=== PATIENT | male | born 1990 | race Caucasian/White ===

== ENCOUNTER 2022-11-22 16:37 | Emergency (ER) | payer MEDICAID, SELFPAY ==
[2022-11-22 16:38] VITALS: BP 136/90; PULSE 83; RESP 17; TEMP 36.6; O2SAT 99; BMI 28.3
--- NOTE | 2022-11-22 17:01 | EDS_ITS ---
HPI HPI - Psych History of Present Illness Chief Complaint: Mental Health Informant: patient Narrative Narrative: Patient presents to ED for psychiatric evaluation and help. Patient states that he is pretty sure his sister called police because he was blowing up her phone. It sounds like he was texting and calling her a lot. He states he gets anxious when he is home alone and was calling her a lot. He denies any report of suicidal statement. He denies that he has any thoughts of hurting himself or anyone else including his child. He does admit that he is stressed. He is living in a house where a gentleman and his mother of cancer. This kind of makes him nervous. He has not been working since August. He has bills to pay but has to watch his child and cannot get a job right now and it is causing him a lot of stress. He admits that his sleep is a little bit poor. He is still eating in fact he thinks he is gaining a small amount of weight. He would be interested in help. It sounds like he has been in counseling before but not for a long time. He does use methamphetamines and on occasion and used yesterday. He states he does take prescribed Adderall for narcolepsy. He has no physical medical complaints. [facility] Medical History (Updated 11/22/22 @ 19:[address] Dmitry Prajapati MD) Substance abuse Home Medications ketorolac 10 mg tablet 10 mg PO Q4H ##14 04/15/14 [Rx Last Taken Unknown] oxycodone-acetaminophen 5 mg-325 mg tablet 1 - 2 tab PO Q4H PRN PRN Pain ##20 04/15/14 [Rx Last Taken Unknown] Allergy/AdvReac Type Severity Reaction Status Date / Time No Known Allergies Allergy Verified 11/22/22 16:41 Family History no significant family his Social History Smoking Status: Never smoker ROS ROS ED Constitutional Constitutional ED: Denies chills or fever(s) Eyes Eyes: Denies change in vision ENT ENT ED: Denies rhinorrhea or sore throat Cardiovascular Cardiovascular: Denies chest pain or palpitations Respiratory/Chest Respiratory/Chest: Denies cough or dyspnea Gastrointestinal Gastrointestinal: Denies abdominal pain, diarrhea, nausea or vomiting Genitourinary Genitourinary ED: Denies dysuria Musculoskeletal Musculoskeletal: Denies myalgias Integumentary Denies rash Neurologic Neurologic: Denies headache(s) Psychiatric Psychiatric: Reports anxiety and depression; Denies suicidal ideation or suicidal thoughts Endocrine Endocrinology: Denies polydipsia or polyuria Hematologic/Lymphatic Hematologic/Lymphatic: Denies easy bleeding or easy bruising Allergic/Immunologic Allergic/Immunologic ED: Denies urticaria EXAM Physical Exam Narrative Exam Narrative: Patient is awake and alert. He is cooperative. HEENT: Shows no trauma. Mucous membranes are moist. Neck is supple. Lungs are clear bilaterally Heart is regular without murmur gallop or rub. Abdomen is soft and nontender shows no CVA or suprapubic tenderness Extremities show no trauma. He does have well callused hands from history of working. Neurologically he is awake alert appropriate not lethargic or overstimulated. Psychiatric: Patient does have a somewhat depressed affect. His eye contact is not the best. But he answers questions quickly. He seems to be consistent. I am not getting any indication that he is not telling the truth. He has denied multiple times any thoughts of hurting himself or others. Const Vital Signs: 11/22/22 16:38 Temperature 97.8 F Temperature Source Temporal Pulse Rate 83 Respiratory Rate 17 Blood Pressure 136/90 H Blood Pressure Mean 105 Pulse Ox 99 Oxygen Delivery Method Room Air MDM MDM MDM Narrative Medical decision making narrative: I did talk to our social studies teacher who is seeing this patient also. Our social studies teacher also saw him and talk to them. He is amenable to treatment. She also does not feel he needs to come in the hospital. He is not suicidal or homicidal. He is able to care for himself. No flight of ideas. No paranoia. She does have him arranged to see intensive outpatient psychiatry. Discharge Plan Triage Chief Complaint: Mental Health ED Provider: Dmitry Prajapati Dx/Rx/DC Orders Clinical Impression: Depression, Amphetamine abuse Prescriptions: No Action ketorolac 10 MG tablet 10 mg PO Q4H Qty: 14 0RF oxycodone-acetaminophen 1 TABLET tablet 1 - 2 tab PO Q4H PRN PRN (Reason: Pain) Qty: 20 0RF Primary Care Provider: Care Physician,No Primary Referrals: Care Physician,No Primary [Primary Care Provider] - Disposition Disposition: [facility]
--- NOTE | 2022-11-22 18:25 | CM.ED ---
Social Work Psychiatric Assessment Reason for Consult: mental health Informants: Patient, Neil Chief Complaint: Patient states ?I called my sister because I didn?t want to be alone, and she called police to check on me?. Patient explained ?I get scared of life and reality, I always let people down?. Martial Status: Patient reports he is single. Identified gender/ sexual orientation: male, heterosexual Living situation: Patient reports he lives with his son and his son?s mother. Supports/ Resources: Patient explained his supports are situational, but he typically reaches out to his sister, son?s mother or his mother?s friend for support. 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 Patient reports he is currently unemployed after being fired from a job of 3 plus years due to smelling like marijuana. Patient states he walked out after management approached him with the concern. ? Mental Health Treatment/ History: Patient reports he was engaged in counseling when he was in high school but didn?t connect with the counselor. Patient reports ADHD diagnosis. Patient reports no previous psychiatric hospitalization. Patient reports his Dad in 2016 and his mother in 2019. Patient expressed sadness and guilt when discussing his father?s passing. Patient is prescribed Adderall. ? Triggers/ stressors: Patient reports he struggles with ?being along?, feeling like he isn?t able to take care of his family and thinking about the passing of his parents. ? Coping Skills: Patient states ?getting high?, talking to someone he trusts or being able to distraction himself such as working. ?? Abuse History: none reported Substance Abuse Hx: Patient reports daily marijuana use and occasional meth use ?when he has it?. Patient reports he is not concerned about his use and compares using meth to taking his Adderall. ?? Risk to Self/Others: ? Suicidal: Patient states he is not currently experiencing suicidal thoughts, does not have a plan nor previous suicide attempt. QUINN assisted patient in completing [place] Suicide Screening; patient is at a low risk for suicide. Patient reports he has a gun in the house, however, patient states he could not use it nor would want to do that to his son. ? Homicidal: denied ? Violence: denied Mental Status Exam: ? Orientation x3 ? Memory: good ? Appearance:? Patient is disheveled and unclean. ? Mood/ affect: depressed and tearful ? Communication Pattern: Patient responds to questions and is tearful throughout assessment. ? Thought Process: appropriate, denies A/VH. ? General Intellectual Functioning: average Judgement: fair Insight: fair QUINN consulted with MD Prajapati and reviewed symptoms and current safety concerns. MD reports patient would benefit from connection to resources, but inpatient psych is not warranted, SW in agreement. Assessment: SW met with patient and introduced herself and role as [facility] Depilatory Painter. Patient was seated on hospital bed in street clothes and agreeable to see patient. SW utilized open ended questions to gather information needed for assessment. Patient was tearful throughout assessment. SW educated patient on depression and provided emotional support. Patient was receptive towards information. SW assisted patient in completing [place] Suicide Screening and patient is low risk for suicide. Patient reports no current plan, no thoughts of suicide nor previous attempts. Patient reports no abuse history and a known diagnosis of ADHD. Patient currently uses marijuana most days and meth occasionally. Patient in agreement to complete Safety plan. SW assisted patient in completing safety plan; patient reports he will review it with his son?s mother Екатерина. SW provided patient with local counseling resources as well as local crisis contact information. SW provided patient with [facility] resources and highlighted [employer] as well as [employer] for their employment program. SW also reviewed information regarding [facility] Behavioral Health IOP/PHP program, patient reports interest and in agreement with referral. No other needs voiced at this time. QUINN provided patient with original copy of his safety plan, placed a copy in his file and informed him the SW tomorrow would be following up with him. SW to call his son?s mother, Екатерина, as patient?s phone is currently broken. QUINN updated RN Zully of safety plan home. QUINN sent referral to [facility] for [facility]/PHP program. ?? Plan: Safety Plan home. Promise JAFFE, WYATT
--- NOTE | 2022-11-23 10:32 | CM.ED ---
QUINN called patient's child's mother, Екатерина, as patient has no working phone. Екатерина is a nurse at [employer]. She said that last night patient was sleeping and this morning he was sleeping. However, when patient got their child on the bus he said I can't ... I can't. Patient's sister is going to go out and check on patient this morning. QUINN advised Екатерина that patient can always be brought back to the ED. QUINN will call and attempt to speak to patient, on Екатерина's phone, between 7:30-8:00pm milagro. Екатерина verbalized understanding of planned follow up. Vero LOCKE
--- NOTE | 2022-11-23 20:18 | CM.ED ---
SW called patient. Patient said that he is doing alright. SW referenced that this senior medical writer was aware that he had a difficult morning. Patient again voiced i am feeling alright.. it is hard to explain. SW discussed PHP/IOP at [facility]. SW provided patient with the phone number for [facility] Behavioral Health. Sw also advised that if patient needs assistance the hospital is available 23/04. Patient voiced understanding. SW asked patient if there was anything he needed and he said not that I can think of. No other concerns or issues voiced. Vero LOCKE
== END 2022-11-22 19:00 | disposition left against medical advice (07) ==
PROVIDERS: Emergency Provider Emergency Medicine; Visit Provider Emergency Medicine
DX: F32.A Depression, unspecified (principal); F15.10 Other stimulant abuse, uncomplicated
CPT/HCPCS: 99283

== ENCOUNTER 2023-01-12 14:45 | Emergency (ER) | payer SELFPAY ==
[2023-01-12] VITALS (7 sets, daily range): BP systolic 127; BP diastolic 75; PULSE 103; RESP 16–18; TEMP 36.9; O2SAT 97; BMI 28.3
--- NOTE | 2023-01-12 15:46 | EKG12_ITS ---
Test Reason : Blood Pressure : / mmHG Vent. Rate : 070 BPM Atrial Rate : 070 BPM P-R Int : 128 ms QRS Dur : 086 ms QT Int : 362 ms P-R-T Axes : 058 051 029 degrees QTc Int : 390 ms Normal sinus rhythm with sinus arrhythmia Normal ECG Confirmed by HETAL ZEPEDA ([id number]), graphic editor JOHANNA COATS ([id number]) on 01/17/2023 1:16:12 PM Referred By: Confirmed By:HETAL ZEPEDA
[2023-01-12 16:09] LABS: Absolute Lymphocyte Count 1.66 X10^3/uL (0.83-4.51); Absolute Neutrophil Count 3.1 X10^3/uL (2.0-7.7); Basophil# 0.06 X10^3/uL; Basophil% 1.1 % (0-1); Eosinophil# 0.24 X10^3/uL; Eosinophils% 4.2 % (0-5); Hematocrit 44.8 % (40-54); Hemoglobin 14.4 g/dL (13.0-16.5); Lymphocyte # 1.66 X10^3/ul (0.83-4.51); Lymphocyte % 29.2 % (19-41); Mean Corp Hgb Conc 32.1 g/dL (32-36); Mean Corpuscular Hgb 27.5 pg (27.0-32.0); Mean Corpuscular Volume 85.7 fL (80-94); Monocyte# 0.62 X10^3/uL; Monocyte% 10.9 % (0-10); NRBC Flagged by Analyzer 0 % (0-5); Neutrophil % 54.4 % (47-70); Platelet Count 302 K/mm3 (150-450); RBC Distribution Width CV 12.4 % (11.6-14.6); RBC Distribution Width SD 38.6 fl (35.1-43.9); Red Blood Count 5.23 M/mm3 (4.6-6.2); White Blood Count 5.7 K/mm3 (4.4-11.0)
--- NOTE | 2023-01-12 16:18 | EX.ED.VIS.PS ---
HPI HPI - Psych History of Present Illness Chief Complaint: Mental Health Informant: patient and spouse/S.O. Narrative Narrative: Patient is a 32-year-old male with history of narcolepsy/cataplexy as well as substance abuse (amphetamines and marijuana) and questionable history of depression presenting for psychiatric evaluation. Patient was brought in by his significant other whom he has a son with. She tells me that he has been depressed and abusing substances. He often makes suicidal statements such as do want me to jump out of the car) while is moving however he is never acted on anything. Patient states he does state things a lot but does not mean them and never follows through. He denies wanting to kill himself. He does admit to having some passive thoughts that it would matter if he did not wake up. Patient states he had a lot of stressors in his life including his relationship issues, he has a son from another relationship that he does not see and both his parents . Today is his mother's birthday and to her anniversary is a week from today. He states he has sold all of his guns recently and is also been slight his trucks. He has been unemployed and states that another stressor. He does admit to self-medicating and told nurses that that this is amphetamines since he is out of his Adderall prescription. He has been prescribed antidepressant but does not take it. This was to counteract the stimulant effect of the Adderall for his narcolepsy. Patient significant other states she left the house because he was leaving drug paraphernalia around where their child could see and did not feel like it was a safe environment. She states she would like to come home to him but feels that he needs help first. She tried to take him to our ER last night but he would not come in and kept asking other people if I looks crazy to them. He has not made any direct statements about suicide intent in the past few days to his significant other. He does not currently see a counselor. [facility] Medical History Substance abuse Home Medications ketorolac 10 mg tablet 10 mg PO Q4H ##14 04/15/14 [Rx Last Taken Unknown] oxycodone-acetaminophen 5 mg-325 mg tablet 1 - 2 tab PO Q4H PRN PRN Pain #20 tabs 04/15/14 [Rx Last Taken Unknown] Allergy/AdvReac Type Severity Reaction Status Date / Time No Known Allergies Allergy Verified 01/12/23 14:46 Social History Smoking Status: Never smoker ROS ROS ED Constitutional Constitutional ED: Denies chills or fever(s) Eyes Eyes: Denies change in vision Respiratory/Chest Respiratory/Chest: Denies cough or dyspnea Gastrointestinal Gastrointestinal: Denies abdominal pain or nausea Musculoskeletal Musculoskeletal: Denies arthralgias or myalgias Integumentary Denies rash Neurologic Neurologic: Denies headache(s) Psychiatric Psychiatric: Reports depression; Denies suicidal ideation or suicidal thoughts EXAM Physical Exam Const Vital Signs: 01/12/23 14:46 01/12/23 15:46 01/12/23 16:00 Temperature 98.4 F Temperature Source Temporal Pulse Rate 103 H Respiratory Rate 18 18 18 Blood Pressure 127/75 H Blood Pressure Mean 92 Pulse Ox 97 Oxygen Delivery Method Room Air 01/12/23 17:00 01/12/23 18:00 01/12/23 21:51 Temperature Temperature Source Pulse Rate Respiratory Rate 16 18 16 Blood Pressure Blood Pressure Mean Pulse Ox Oxygen Delivery Method 01/12/23 22:00 Temperature Temperature Source Pulse Rate Respiratory Rate 16 Blood Pressure Blood Pressure Mean Pulse Ox Oxygen Delivery Method Positive well nourished and well developed General Appearance ED: well developed and NAD HEENT Reports moist mucous membranes normocephalic Eyes EOMs intact bilaterally Neck supple Resp normal respiratory effort and clear to auscultation bilaterally Cardio Rate: regular rate Rhythm: regular rhythm GI non-tender and non-distended Extremity normal to inspection General Extremety ED: Negative for edema General Extremity: Negative for edema Neuro oriented x3 Sensorium / Orientation: alert Motor Exam: muscle tone normal throughout Psych cooperative and denies homicidal ideation Psych Narrative: Patient clinically appears depressed. Does admit to paranoia and hearing people talking that are not there. Attributes this to his methamphetamine use. Admits to passive suicidal ideations where he feels that he be better off if he was not alive but does not have a plan. Appearance: well kempt Attitude: calm Activity / Motor Behavior: avoids eye contact Speech: normal speech Mood & Affect: depressed Thought Process: normal thought process Attention / Concentration: attention grossly intact Memory / Cognition: memory grossly intact Insight: limited Judgement: limited Skin Rashes: no rashes MDM MDM MDM Narrative Medical decision making narrative: Patient is evaluated for cyclic worsening depression on top of amphetamine and marijuana abuse. Patient appears nontoxic. He is quite withdrawn and depressed. He is intermittently tearful on exam. Legs not have an active suicidal plan I am concerned for his safety if he goes home especially coming up and the anniversary of his mother's . Patient evaluated by the counseling center who feel that he would benefit from inpatient admission. [place] slip is filled out by myself. Patient's girlfriend is quite agreeable and supportive of him going into psychiatric hospital. Patient is medically cleared. Patient is cooperative in the emergency room. Patient signed out to oncoming physician pending psychiatric acceptance. Lab Data Attestation: I reviewed the patient's lab results. Labs: Laboratory Results - last 24 hr 01/12/23 01/12/23 01/12/23 16:00 16:00 16:00 WBC 5.7 RBC 5.23 Hgb 14.4 Hct 44.8 MCV 85.7 MCH 27.5 MCHC 32.1 RDW Std Deviation 38.6 RDW Coeff of Emanuel 12.4 Plt Count 302 MPV 9.0 Immature Gran % (Auto) 0.200 Neut % (Auto) 54.4 Lymph % (Auto) 29.2 [place] % (Auto) 10.9 H Eos % (Auto) 4.2 Baso % (Auto) 1.1 H Absolute Neuts (auto) 3.1 Absolute Lymphs (auto) 1.66 Nucleated RBC % 0 Sodium 141 Potassium 3.6 Chloride 108 H Carbon Dioxide 28.0 Anion Gap 5 BUN 10 Creatinine 0.96 Estim Creat Clear Calc 107.86 Est GFR (MDRD) Af Amer 117 Est GFR (MDRD) Non-Af 97 BUN/Creatinine Ratio 10.4 Glucose 125 H Calcium 8.9 Urine Opiates Screen Urine Methadone Screen Ur Barbiturates Screen Ur Phencyclidine Scrn Ur Amphetamines Screen MDMA (Ecstasy) Screen U Benzodiazepines Scrn Urine Cocaine Screen U Cannabinoids Screen Ur Drug Screen Comment Ethyl Alcohol 4.0 01/12/23 17:25 WBC RBC Hgb Hct MCV MCH MCHC RDW Std Deviation RDW Coeff of Emanuel Plt Count MPV Immature Gran % (Auto) Neut % (Auto) Lymph % (Auto) [place] % (Auto) Eos % (Auto) Baso % (Auto) Absolute Neuts (auto) Absolute Lymphs (auto) Nucleated RBC % Sodium Potassium Chloride Carbon Dioxide Anion Gap BUN Creatinine Estim Creat Clear Calc Est GFR (MDRD) Af Amer Est GFR (MDRD) Non-Af BUN/Creatinine Ratio Glucose Calcium Urine Opiates Screen NEGATIVE Urine Methadone Screen NEGATIVE Ur Barbiturates Screen NEGATIVE Ur Phencyclidine Scrn NEGATIVE Ur Amphetamines Screen POSITIVE H MDMA (Ecstasy) Screen NEGATIVE U Benzodiazepines Scrn NEGATIVE Urine Cocaine Screen NEGATIVE U Cannabinoids Screen POSITIVE H Ur Drug Screen Comment Ethyl Alcohol Rhythm Strip Rhythm Strip: Sinus Rhythm Rate: 70 Ectopy: None EKG Initial EKG: Attestation: I personally reviewed and interpreted this EKG as follows: Interpretation: Sinus Rhythm Comments: Normal sinus rhythm at a rate of 70 bpm Normal axis Normal intervals Normal ST segments Prior EKG tracings: not available for review Management Discussion w/another healthcare provider: field ironworker/Case management Discharge Plan Triage Chief Complaint: Mental Health ED Provider: Tana Garcia Dx/Rx/DC Orders Clinical Impression: Depression, Amphetamine abuse Prescriptions: No Action ketorolac 10 MG tablet 10 mg PO Q4H Qty: 14 0RF oxycodone-acetaminophen 1 TABLET tablet 1 - 2 tab PO Q4H PRN PRN (Reason: Pain) Qty: 20 0RF Primary Care Provider: Care Physician,No Primary Referrals: Care Physician,No Primary [Primary Care Provider] - Disposition Disposition: Psychiatric Hospital or Unit
[2023-01-12 16:25] LABS: Anion Gap 5 (5-15); BUN 10 mg/dL (7-18); BUN/Creat Ratio 10.4 RATIO (10-20); Calcium,Total 8.9 mg/dL (8.5-10.1); Chloride 108 mmol/L (98-107); Creatinine, Serum 0.96 mg/dL (0.70-1.30); EST Glomerular Filtration Rate 97 mL/min (>60); Est Glom Filt Rate - Afr Amer 117 mL/min (>60); Estimated Creatinine Clearance 107.86 ml/min; Glucose 125 mg/dL (74-106); Potassium 3.6 mmol/L (3.5-5.1); Sodium Level 141 mmol/L (136-145)
[2023-01-12 17:51] LABS: Amphetamine Urine VISTA POSITIVE (<1000 ng/mL); Barbiturate Urine VISTA NEGATIVE (< 200 ng/mL); Benzodiazepine Urine VISTA NEGATIVE (< 200 ng/mL); Cocaine Urine VISTA NEGATIVE (< 300 ng/mL); Ecstacy Urine VISTA NEGATIVE (< 500 ng/mL); Methadone Urine VISTA NEGATIVE (< 300 ng/mL); PCP Urine VISTA NEGATIVE (< 25 ng/mL); THC Urine VISTA POSITIVE (< 50 ng/mL); Vista UDS pH Range 4
--- NOTE | 2023-01-12 18:22 | ED.RN ---
FAXED PAPERWORK TO CRISIS
--- NOTE | 2023-01-12 21:34 | NURSING ---
CRISIS STATES THAT PATIENT WILL BE REFERRED TO [facility]
[2023-01-13] VITALS (7 sets, daily range): BP systolic 110–139; BP diastolic 68–78; PULSE 62–71; RESP 14–16; O2SAT 97–98
[2023-01-13 01:54] LABS: AST(SGOT) 34 U/L (15-37); Alanine Aminotransfer ALT/SGPT 46 U/L (16-61); Albumin, Serum 3.6 g/dL (3.2-5.0); Alkaline Phosphatase 83 U/L (45-117); Bilirubin, Direct 0.09 mg/dL (0.00-0.30); Globulin 2.9 g/dL (2.2-4.2); Protein, Total 6.5 g/dL (6.4-8.2)
[2023-01-13 02:00] LABS: Bacteria 0 SEEN /hpf (None Seen); Color, Urine Yellow (Yellow); Glucose, Dipstick Normal (Normal); Ketone-Dipstick Negative (Negative); Leukocyte Esterase-Dipstick Negative /ul (Negative); Mucous, Urine 0 SEEN /hpf (<or=2+); Nitrite-Dipstick Negative (Negative); Occult Blood-Urine Negative /ul (Negative); Protein-Dipstick Negative (Negative); Red Blood Cells-Urine 0 SEEN /hpf (0-5); Specific Gravity, Urine 1.025 (1.002-1.030); Squamous Epithelial Cells - UA 0 SEEN /hpf (0-5); Urine Bilirubin Dipstick Negative (Negative); Urine Clarity Clear (Clear); Urine Urobilinogen Normal (Normal)
[2023-01-13 02:01] LABS: Calcium Oxalate Crystals Ur 1+ /hpf (<or=2+); White Blood Cells 0-5 SEEN /hpf (0-5)
--- NOTE | 2023-01-13 15:47 | ED.RN ---
CRISIS STOPPED IN AND TALKED WITH PT, PT IS REFERRED TO [id number]
--- NOTE | 2023-01-13 16:47 | ED.RN ---
MADDISON FROM [facility] CALLED FOR MORE MEDICAL INFO. ALL QUESTIONS ANSWERED, THEY WILL CALL BACK WITH PHYSICIAN'S DECISION FOR ACCEPTANCE
[2023-01-13 17:34] LABS: CPK Total, Creatine Kinase 367 U/L (39-308)
--- NOTE | 2023-01-13 17:40 | ED.RN ---
FAXED EKG AND CPK TO [facility]
--- NOTE | 2023-01-13 18:21 | ED.RN ---
CRISIS CALLED AND STATED HIS INSURANCE IS NOT ACTIVE SO HE IS NOW PENDING [facility] AGAIN
--- NOTE | 2023-01-13 21:07 | ED.RN ---
[facility] REQUESTED PINK SLIP AND EKG FAXXED OVER.
[2023-01-14] VITALS (8 sets, daily range): BP systolic 114–127; BP diastolic 58–82; PULSE 52–73; RESP 14–18; TEMP 36.1–36.6; O2SAT 94–98
--- NOTE | 2023-01-14 15:38 | ED.RN ---
CALLED AND VERIFIED WITH CRISIS PT IS STILL PENDING AT [facility]
[2023-01-15] VITALS (8 sets, daily range): BP systolic 118–121; BP diastolic 78–84; PULSE 82–88; RESP 14–18; TEMP 36.9; O2SAT 100
--- NOTE | 2023-01-15 10:13 | ED.RN ---
SAM CALLED TO SAY THE PT DOES NOT MEET CRITERIA FOR INPATIENT ADMISSION AT THIS TIME. STATES MAYBE HE WOULD BENEFIT FROM HOSPITAL ADMISSION FOR SUBSTANCE ABUSE. THIS RN NOTIFIED CAMELIA FROM [facility]. SHE STATES SHE WILL SPEAK TO PT TO ATTEMPT TO DISCHARGE HIM. PORTABLE PHONE GIVEN TO PATIENT.
== END 2023-01-15 12:12 | disposition home or self-care (01) ==
PROVIDERS: Emergency Medicine; Emergency Provider Emergency Medicine; Visit Provider Emergency Medicine
DX: F32.A Depression, unspecified (principal); F15.10 Other stimulant abuse, uncomplicated; Z79.899 Other long term (current) drug therapy
CPT/HCPCS: 80048; 80076; 80307; 81001; 82077; 82550; 85025; 87428; 93005; 99282; J7030; A4216

== ENCOUNTER 2023-10-19 11:04 | Emergency (ER) | payer MEDICAID, SELFPAY ==
[2023-10-19 11:04] VITALS: BP 114/102; PULSE 59; RESP 16; TEMP 36.4; O2SAT 97; BMI 31.1
--- NOTE | 2023-10-19 11:08 | EDS_ITS ---
HPI History of Present Illness HPI Narrative: Patient presents with pain and swelling to his left forearm, wrist, and hand that has been getting worse over the past several days. Patient states it is gradually getting worse. Patient states he was at work picking up some pipes and then later in his shift he noted some pain. Patient states the next day he noted some swelling. Patient states the swelling has been persistent. Patient denies any definite trauma or injury. Patient states nothing makes it better nothing makes it worse. Patient denies any paresthesias or weakness. Patient denies any fevers or chills. Patient denies any redness. Chief Complaint: Upper Extremity Injury Informant: patient Onset/Context/Timing Onset: Days Context: Gradual Onset Timing: Continuous Quality of Pain: Aching and Burning Location: Left hand, wrist, and forearm Worsened by: Nothing Relieved by: Nothing Associated Symptoms Associated Symptoms: Negative for Parasthesia, Weakness or Loss of Funtion PFSH [facility] Medical History Substance abuse Home Medications naproxen 500 mg tablet (Naprosyn) 500 mg PO BID PRN pain #20 tabs 10/19/23 [Rx Last Taken Unknown] Allergy/AdvReac Type Severity Reaction Status Date / Time haloperidol [From Haldol] Allergy Shortness Verified 10/19/23 11:04 of breath Surgical History no surgical history no surgical history Social History Smoking Status: Never smoker ROS ROS ED Constitutional Constitutional ED: Denies chills or fever(s) Eyes Eyes: Denies blurry vision or change in vision ENT ENT ED: Denies rhinorrhea or sore throat Cardiovascular Cardiovascular: Denies chest pain or palpitations Respiratory/Chest Respiratory/Chest: Denies cough or dyspnea Gastrointestinal Gastrointestinal: Denies nausea or vomiting Genitourinary Genitourinary ED: Denies dysuria or hematuria Musculoskeletal Musculoskeletal: Denies back pain or neck pain Integumentary Denies abscess or rash Neurologic Neurologic: Denies headache(s) or weakness Allergic/Immunologic Allergic/Immunologic ED: Denies mouth swelling or urticaria EXAM Physical Exam Const Vital Signs: 10/19/23 11:04 Temperature 97.6 F L Temperature Source Temporal Pulse Rate 59 L Respiratory Rate 16 Blood Pressure 114/102 H Blood Pressure Mean 106 Pulse Ox 97 Oxygen Delivery Method Room Air Positive well nourished and well developed General Appearance ED: well developed and NAD HEENT Reports moist mucous membranes Neck full ROM and supple Extremity Extremity Narrative: There is mild tenderness of the left distal forearm. There is some edema over the distal forearm, wrist, and hand. There is no obvious deformity noted. Range of motion was slightly limited in all motions of the left wrist secondary to pain. Strength is 5/5 in the radial, median, and ulnar areas. Sensation is intact light touch in the radial, median, and ulnar areas. Radial pulses are equal bilaterally. There is no erythema or warmth noted. There are no abrasions or lacerations noted. There is no tenderness over the upper arm. General Extremety ED: Yes edema General Extremity: edema Neuro oriented x3, CN's II-XII intact bilaterally, moves all extremities, no focal motor deficits and no sensory deficits noted Sensorium / Orientation: alert Motor Exam: strength 5/5 throughout Psych mental status grossly normal MDM MDM MDM Narrative Medical decision making narrative: Differential diagnosis includes tendinitis, muscle strain, occult fracture, infection, and arthritis. X-rays of the left wrist and forearm will be obtained to assess for fracture. CBC will be obtained to assess for leukocytosis and anemia. Patient metabolic profile will be obtained to assess for electrolyte abnormality and renal function. Sed rate and CRP will be obtained to assess for inflammatory markers. Lab Data Attestation: I reviewed the patient's lab results. Lab results narrative: CBC was reviewed and was within normal limits. Basic metabolic profile was re viewed and was essentially within normal limits. Sed rate was reviewed and was normal at 1. CRP was reviewed and was only slightly elevated at 5.59. Radiography Diagnostic Testing: X-rays of the left forearm were obtained. There are 2 views. On my independent interpretation, there is no acute fracture or dislocation noted. Radiologist also interpreted the x-rays and agrees. X-rays of the left wrist were obtained. There are 3 views. On my independent interpretation, there is no acute fracture or dislocation noted. There are some mild soft tissue swelling noted. Radiologist also interpreted the x-rays and agrees. Treatment and Re-Evaluation Narrative: Patient was advised of his findings. Patient was given a wrist splint. Patient was instructed to ice and elevate the left hand and wrist. Patient was given a prescription for Naprosyn for pain. Patient was instructed to follow-up with his primary care physician in 5 to 7 days. Patient understood and was agreeable with the plan. All questions were answered. Discharge Plan Triage Chief Complaint: Upper Extremity Injury ED Provider: Zohaib George Dx/Rx/DC Orders Clinical Impression: Left wrist sprain Instructions: ED Wrist Sprain Prescriptions: New naproxen [Naprosyn] 500 mg tablet 500 mg PO BID PRN (Reason: pain) Qty: 20 0RF Primary Care Provider: Zia Hicks Referrals: Zia Hicks DO [Primary Care Provider] - 5-7 Days Care Physician,No Primary [Non-Staff] - Disposition Disposition: Home, Self Care
--- OUTSIDE RECORDS SUMMARY | 2023-10-19 11:44 | XMS RPT_ITS | CCD ---
Author Name Unknown Address [address] [facility] [address] [place] [address] Organization [facility] Care Team Providers Care Blindstitch Lapel Padder Name Role Phone Zia Weeks DO Primary Care Provider ZIA WEEKS DO Primary Care Physician JAROD GUILLERMO Attending Unavailable ZIA WEEKS DO Primary Care Unavailable ZIA WEEKS DO Primary Care Unavailable RADHA JEFFREY Attending Unavailable Zia Weeks DO Primary Care Provider ZIA WEEKS Primary Care Unavailable TOMA KOCH Attending Unavailable CEDRIC ALFORD Attending Unavailable ZIA WEEKS Primary Care Unavailable LO DE LA GARZA JR Attending Unavailable ZIA WEEKS Primary Care Unavailable Medications Completed/Discontinued Medications Medication Drug Class(es) Dates Sig (Normalized) Sig (Original) amphetamine aspartate 5 mg / amphetamine sulfate 5 mg / dextroamphetamine saccharate 5 mg / dextroamphetamine sulfate 5 mg oral tablet (14 sources) Central Nervous System Stimulant Start: 02-08-2022 End: 11-13-2022 take 1 tablet by mouth twice daily dextroamphetamine- amphetamine (ADDERALL) 20 mg tablet Indications: Primary narcolepsy with cataplexy Take one tablet by mouth twice per day. Do not exceed two tablets in a 24 hour period. Do not start before April 10, 2022. 60 tablet 0 04/10/2022 08/15/2022 Discontinued Problems Active Problems Problem Classification Problem Date Documented Da te Episodic/Chronic Mood disorders (1 source) Mood disorders; Translations: [Depression, unspecified depression type] Onset: 02-13-2023 Other aftercare (3 sources) Long-term current use of stimulant; Translations: [Other technician terminal and repeater (current) drug therapy] Onset: 11-07-2021 11-07-2021 Episodic Other hereditary and degenerative nervous system conditions (2 sources) Dystonia; Translations: [Dystonia, unspecified] Onset: 07-05-2022 Chronic Other nervous system disorders (4 sources) Cataplexy and narcolepsy; Translations: [Narcolepsy with cataplexy] Onset: 02-20-2017 Chronic Other nervous system disorders (3 sources) Disorder of sleep-wake cycle; Translations: [Circadian rhythm sleep disorder, irregular sleep wake type] Onset: 11-06-2021 11-06-2021 Chronic Other nervous system disorders (2 sources) Narcolepsy with cataplexy; Translations: [Primary narcolepsy with cataplexy] Onset: 08-15-2022 Chronic Other nervous system disorders (1 source) Circadian rhythm sleep disorder, irregular sleep wake type; Translations: [Circadian rhythm sleep disorder, irregular sleep wake type] Onset: 11-06-2021 Chronic Past or Other Problems Problem Classification Problem Date Documented Da te Episodic/Chronic Administrative/social admission (2 sources) Patient counseled; Translations: [Other specified counseling] Onset: 06-19-2018 06-19-2018 Episodic Other aftercare (1 source) Other technician terminal and repeater (current) drug therapy; Translations: [Long-term current use of stimulant] Onset: 11-08-2021 Episodic Results Test Name Value Interpretation Reference Range Facil ity Vital Signs Date Time Vital Sign Value Performing Clinician Facility 08-15-2022 13:34-0500 Body height 170.2 cm Toma Koch APRN.CNP Work Phone: [facility] 08-15-2022 13:34-0500 Body temperature 96.8 [degF] Toma Koch APRN.CNP Work Phone: [facility] 08-15-2022 13:34-0500 Body weight 74.39 kg Toma Koch APRN.CNP Work Phone: [facility] 08-15-2022 13:34-0500 Diastolic blood pressure 86 mm[Hg] Toma Koch APRN.CNP Work Phone: [facility] 08-15-2022 13:34-0500 Heart rate 98 /min Toma Koch WORD PROCESSING MACHINE OPERATOR.TRAVEL ACCOMMODATION INSPECTOR Work Phone: [facility] 08-15-2022 13:34-0500 Respiratory rate 20 /min Toma Koch WORD PROCESSING MACHINE OPERATOR.TRAVEL ACCOMMODATION INSPECTOR Work Phone: [facility] 08-15-2022 13:34-0500 SaO2% (BldA) [Mass fraction] 98 % Toma Koch WORD PROCESSING MACHINE OPERATOR.TRAVEL ACCOMMODATION INSPECTOR Work Phone: [facility] 08-15-2022 13:34-0500 Systolic blood pressure 139 mm[Hg] Toma Koch WORD PROCESSING MACHINE OPERATOR.TRAVEL ACCOMMODATION INSPECTOR Work Phone: [facility] 07-05-2022 10:38-0400 Diastolic blood pressure 90 mm[Hg] JAROD DURESKA DO [facility] 07-05-2022 10:38-0400 Heart rate 54 /min JAROD DURESKA DO [facility] 07-05-2022 10:38-0400 Respiratory rate 16 /min JAROD DURESKA DO [facility] 07-05-2022 10:38-0400 Systolic blood pressure 132 mm[Hg] JAROD DURESKA DO [facility] 07-05-2022 09:54-0400 Diastolic blood pressure 94 mm[Hg] JAROD DURESKA DO [facility] 07-05-2022 09:54-0400 Heart rate 63 /min JAROD DURESKA DO [facility] 07-05-2022 09:54-0400 Respiratory rate 16 /min JAROD DURESKA DO [facility] 07-05-2022 09:54-0400 Systolic blood pressure 128 mm[Hg] JAROD DURESKA DO [facility] 07-05-2022 08:05-0400 Body height 172.7 cm JAROD DURESKA DO [facility] 07-05-2022 08:05-0400 Body temperature 97.34 [degF] JAROD DURESKA DO [facility] 07-05-2022 08:05-0400 Body weight 70.5 kg JAROD DURESKA DO [facility] 07-05-2022 08:05-0400 Diastolic blood pressure 83 mm[Hg] JAROD DURESKA DO [facility] 07-05-2022 08:05-0400 Heart rate 66 /min JAROD DURESKA DO [facility] 07-05-2022 08:05-0400 Respiratory rate 16 /min JAROD DURESKA DO [facility] 07-05-2022 08:05-0400 Systolic blood pressure 127 mm[Hg] JAROD DURESKA DO [facility] 07-04-2022 13:24-0400 Heart rate 97 /min DR RADHA JEFFREY MD [facility] 07-04-2022 13:24-0400 Respiratory rate 14 /min DR RADHA JEFFREY MD [facility] 07-04-2022 12:32-0400 Body temperature 96.98 [degF] DR RADHA JEFFREY MD [facility] 07-04-2022 12:32-0400 Diastolic blood pressure 84 mm[Hg] DR RADHA JEFFREY MD [facility] 07-04-2022 12:32-0400 Heart rate 82 /min DR RADHA JEFFREY MD [facility] 07-04-2022 12:32-0400 Reason For Taking VItal Signs DR RADHA JEFFREY MD [facility] 07-04-2022 12:32-0400 Respiratory rate 14 /min DR RADHA JEFFREY MD [facility] 07-04-2022 12:32-0400 Systolic blood pressure 134 mm[Hg] DR RADHA JEFFREY MD [facility] 07-04-2022 11:31-0400 Body height 172.[address] RADHA JEFFREY MD [facility] 07-04-2022 11:31-0400 Body temperature 97.16 [degF] DR RADHA JEFFREY MD [facility] 07-04-2022 11:31-0400 Body weight 70.[address] RADHA JEFFREY MD [facility] 07-04-2022 11:31-0400 Diastolic blood pressure 65 mm[Hg] DR RADHA JEFFREY MD [facility] 07-04-2022 11:31-0400 Heart rate 82 /min DR RADHA JEFFREY MD [facility] 07-04-2022 11:31-0400 Respiratory rate 18 /min DR RADHA JEFFREY MD [facility] 07-04-2022 11:31-0400 Systolic blood pressure 105 mm[Hg] DR RADHA JEFFREY MD [facility] Encounters Encounter Date Encounter Type Care Provider Facility Start: 02-13-2023 End: 02-13-2023 ambulatory LO DE LA GARZA JR Facility:[facility] Start: 08-15-2022 End: 08-16-2022 ambulatory ZIA WEEKS Facility:[facility] Start: 08-15-2022 End: 08-15-2022 Patient encounter procedure Toma Koch WORD PROCESSING MACHINE OPERATOR.TRAVEL ACCOMMODATION INSPECTOR Work Phone: Neurology Procedures Date Procedure Procedure Detail Performing Clinician Start: 08-15-2022 Ecg routine ecg w/le ast 12 lds i&r only [facility] Provider Start: 02-08-2022 Adult depression screening assessment Cedric Alford MD Work Phone: Plan of Treatment Date Care Activity Detail Author Start: 02-08-2023 Adult depression screening assessment DEPRESSION SCREENING [facility] Start: 08-15-2022 End: 10-15-2022 TOX SCREEN ROUT UR [facility] Work Phone: Payers Date Payer Category Payer Medicaid [id number] 2022 Private Health Insurance [id number] 2022 Private Health Insurance [facility] [id number] 2022-Present [phone] [address] [place] [address] HMO [id number] 2020 Unknown [employer]IMBER[employer] PPO [id number] 2020-Present [phone] [address] [place] [address] PPO [id number] 2020 Unknown [id number] 1991 Unknown [id number] 1991 Unknown [id number] Social History Date Type Detail Facility Start: 02-03-2014 Tobacco smoking stat us WYIS Never smoked tobacco [facility] Work Phone: Start: 02-03-2014 Tobacco use and exposure Smoke less tobacco non-user [facility] Work Phone: Start: 11-07-2021 End: 08-15-2022 Alcohol intake Current non-drinker of alcohol (finding) [facility] Start: 1990 Sex Assigned At Not on file C [facility] Sex Assigned At Sex [facility] Start: 07-05-2022 Tobacco smoking status Ex-smoker (fi nding) [facility] Start: 07-07-2022 History SDOH Alcohol Frequency 1 [facility] Start: 07-07-2022 History SDOH Alcohol Std Drinks 0 [facility] Start: 07-07-2022 History SDOH Social Connections Phone 2 [facility] Start: 07-07-2022 History SDOH Social Connections Meetings 98 [facility] Start: 07-07-2022 History SDOH Social Connections Living 8 [facility] Start: 07-07-2022 History SDOH Physica l Activity MPS 3 [facility] Start: 07-07-2022 History SDOH Stress 5 [facility] Start: 07-07-2022 History SDOH Financial 4 [facility] Start: 08-05-2022 End: 08-15-2022 Exposure to SARS-CoV-2 (event) Not sure [facility] Functional Status Date Assessment Result Facility 07-05-2022 Functional Status Up ad jarad [facility] 07-05-2022 Functional Status Standard Safet y ID band on, Call device within reach, Bed in low position, Wheels locked, Upper/Half-Length side-rails up [facility] 07-04-2022 Functional Status Assistive Device None A [facility] Mental Status Date Assessment Result Facility 07-05-2022 Mental Status Orientation Oriented x 4 [facility] 07-05-2022 Mental Status [facility] 07-04-2022 Mental Status Orientation Oriented x 4 [facility] 07-04-2022 Mental [facility] Clinical Notes 04-19-2016 to 02-13-2023 Patient InstructionsSteri Koch APRN.JEFFERY - 08/15/2022 2:00 PM Judd Alford MD - 02/08/2022 12:00 PM EDT Note Date & Type Note Facility 02-13-2023 Note HNO ID: [id number] Author: Lo De La Garza Jr., MD Service: ? Author Type: Physician Type: Progress Notes Filed: 02/13/2023 10:24 PM Note Text: [facility] Follow up/ Established patient visit Date of last visit : 08/15/2022 Per Last Visit Note: Overview: Mr. 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 - Doing well with Adderall 20 mg two tablets daily. - Denies any side effects. - Compliant and benefiting from treatment. - Discussed controlled medications require one yearly in person visit with doctor (Dr. De La Garza) per new [place] law guidelines and then you can follow up with virtual visits the rest of the year. Plan: - Continue taking Adderall 20 mg two tablets daily. Last filled on 04/10/22. Dispense on or after 08/15/22, 09/14/22, 10/14/22. Follow up before 11/13/22. - Avoid driving when drowsy. - machine overhauler for short naps (20-30 minutes) and use of caffeine if needed to help stay awake when driving. - Try to get at least 7-9 hours of sleep in a 24 hour period. Healthy diet and exercise can also promote better sleep. - Complete ECG done. Reviewed with patient. NSR at 84 bpm. Normal ECG. - Urine tox screen done. Results pending. - Last seen in person by Dr. De La Garza on 10/11/2020. Must be seen soon by Dr. De La Garza in person to meet state regulations. Recommend scheduling this appointment now to ensure the best time for you. If you have questions, feel free to send me a No Paper Just Vapor message . I spent a total of 35 minutes as this was a new patient to me on the date of the service which included preparing to see the patient, [id number] patient care, completing clinical documentation, counseling and educating the patient/family/caregiver and ordering medications, tests, or procedures. Toma Koch APRN.[facility] Sleep Studies (Reviewed Prior and Current): Polysomnogram 08/11/2010 revealed no PRITI (AHI 1.0) that was associated with a minimum O2 saturation of 84%. MSLT 09/26/2010 showed severe hypersomnia with a sleep latency of 2 minutes, with 5/5 SOREMPs. Interval history : Mr. Parish is seen via a virtual Distance Health visit today with the parent/patient's verbal consent. The visit is conducted synchronously in real-time. I have communicated my name and active licensure. The patient's identity and physical location were verified at the time of this visit. Either the patient or their legal training representative has been informed of the risks and benefits of -- and alternatives to -- treatment through a remote evaluation and consents to proceed with the evaluation remotely. He says he's been doing okay I guess. Having difficulty keeping a job; says he's either over sleeping or up all night. Just fired yesterday (1 vehicle; if she is not there, he will get a ride from a coworker, and he misses them because he gets up too late) He says there are days when he takes it and it does not help at all. Been without Adderall for ~2 months. Varied the number he was taking; typically 1-2/day, there had been times when he had to take more. Does endorse a lot of feelings of hopelessness and apathy. Denies SI/HI for me today. When asked about it, replied: You say stuff, and your friend takes your kid away, and you're on their property but you can't go see them. You'll do anything to see your kid, you know? Also endorses living in a house where his mother , when he picked her up out of the bedroom on her last day here. Was in ED for 3 days January 12-. Per chart review, he had been seen for depression and substance abuse, brought in by his significant other ( son's mom, whom he lives with), and it was documented that there was drug paraphernalia around the house and he had stated he was using methamphetamines and marijuana at the time. He was evaluated for placement by [facility], however deemed not a candidate for placement. He is very inconsistent with his description of this event, becomes very tangential. States If I don't take an upper or speed or something then he'll fall asleep constantly throughout the day. He says he is not using [weed] like he used to. Maybe once per day. He did cancel 2 Sleep Medicine appointments since his last one in August, on 11/06/2022 and 09/11/2022. His girlfriend states that the patient was angry and threatening to jump out of the car because she had taken their son away due to safety concerns; she says he seems very depressed, although she does not think he would harm himself. HYPERSOMNIA: Narcolepsy Naps: Yes; will doze off multiple times throughout the day Cataplexy: Yes. Number of episodes: Varies (when I get relief from something, when someone tells me a funny joke), Description: muscles give out, knees buckle, ember (more content not included)... [facility] 08-15-2022 Note HNO ID: [id number] Author: Toma Koch APRN.TRAVEL ACCOMMODATION INSPECTOR Service: ? Author Type: Nurse Practitioner Type: Progress Notes Filed: 08/15/2022 11:04 PM Note Text: [facility] Follow up/ Established patient visit Date of last visit : 02/08/22 Per last visit: IMPRESSION: Narcolepsy with Cataplexy PLAN: - Continue taking Adderall, but increase to 20 mg twice per day as directed. - Avoid driving when drowsy. - machine overhauler for short naps (20-30 minutes) and use of caffeine if needed to help stay awake when driving. - Try to get at least 7-9 hours of sleep in a 24 hour period. Healthy diet and exercise can also promote better sleep. - Follow up in 3 months in the office. Recommend scheduling this appointment now to ensure the best time for you. - consider Xywav next visit. Cedric Alford MD Interval history : Here for follow up for NT1 (Adderall 20 mg two tabs daily). HYPERSOMNIA : Narcolepsy Naps: No Cataplexy: No Hypnagogic hallucinations: No Dream enactment behaviors: No Vivid dreams: Yes Sleep related injuries: No Drowsy driving: No, limits his driving to an hour tops. Current medications: OARRS checked: Yes Taking Adderall 20 mg two tablets daily. (0600, 0900). Medication effective. I don't fall asleep. Denies any tremor, insomnia, palpitations. Treatment history: No other medications. SLEEP HYGIENE Bedtime : 2130 Wake up Time : 0500 Time it takes to fall sleep : < 15 minutes Activities in bed before falling asleep : None Number of times patient wakes up per night : 1-2 Reason (s) why patient wakes up during the night : Drink Estimated total sleep time ( in a 24 hour period of time) : 5-6 Wakes up in the morning feeling alright. I try to keep that positive energy. Naps : Yes PATIENT-ENTERED QUESTIONNAIRE SLEEP SCORES Sleep Questions 05/09/2022 Reason for visit: Narcolepsy Average hours slept in 24 hours: 9 Accidents or near accidents due to drowsy drivin [place] Sleepiness Scale 11/07/2021 02/08/2022 05/09/2022 Score 18 (severe daytime sleepiness) 18 (severe daytime sleepiness) 18 (severe daytime sleepiness) PROMIS CAT Sleep Disturbance 11/07/2021 02/08/2022 05/09/2022 PROMIS Sleep Disturbance T-Score 58 (mild) 58 (mild) 63 (moderate) Insomnia Severity Index 11/07/2021 02/08/2022 05/09/2022 Score 15 15 17 Restless Leg Syndrome 05/09/2022 Score 14 PHQ-9 02/08/2022 05/09/2022 07/07/2022 Score 17 11 13 PROMIS Global Health - (T-Scores - the mean of general population = 50. Five points is a clinically meaningful difference.) 02/08/2022 05/09/2022 07/07/2022 Physical T-Score 44.9 47.7 42.3 Mental T-Score 36.3 43.5 43.5 PMH, PSH, SH: Reviewed SLEEP RELATED ROS Review of Systems Constitutional: Negative. Respiratory: Negative. Cardiovascular: Negative. Genitourinary: Negative. Neurological: Negative. ALLERGIES No Known Allergies CURRENT MEDICATIONS: [START ON 10/14/2022] dextroamphetamine-amphetamine (ADDERALL) 20 mg tablet Take one tablet by mouth twice per day. Do not exceed two tablets in a 24 hour period. Do not start before October 14, 2022. [START ON 09/14/2022] dextroamphetamine-amphetamine (ADDERALL) 20 mg tablet Take one tablet by mouth twice per day. Do not exceed two tablets in a 24 hour period. Do not start before September 14, 2022. dextroamphetamine-amphetamine (ADDERALL) 20 mg tablet Take one tablet by mouth twice per day. Do not exceed two tablets in a 24 hour period. Prior Hypersomnia/Narcolepsy Medications (20 years) Some values may be hidden. Unless noted otherwise, only the newest values recorded on each date are displayed. Hypersomnia/Narcolepsy Medications Amphetamine-Dextroamphetamine (ADDERALL) 30 mg tablet Dose: 30 mg DAILY Starting date: 10/11/2020 Ending date: 12/10/2020 (Discontinued) Amphetamine-Dextroamphetamine (ADDERALL) 30 mg tablet Dose: 30 mg DAILY Starting date: 11/11/2020 Ending date: 12/10/2020 (Discontinued) Amphetamine-Dextroamphetamine (ADDERALL) 30 mg tablet Dose: 30 mg DAILY Starting date: 02/08/2021 Ending date: 03/07/2021 (Discontinued) Amphetamine-Dextroamphetamine (ADDERALL) 30 mg tablet Dose: 30 mg DAILY Starting date: 01/09/2021 Ending date: 03/07/2021 (Discontinued) Amphetamine-Dextroamphetamine (ADDERALL) 30 mg tablet Dose: 30 mg DAILY Starting date: 12/10/2020 Ending date: 03/07/2021 (Discontinued) Amphetamine-Dextroamphetamine (ADDERALL) 30 mg tablet Dose: 30 mg DAILY Starting date: 05/09/2021 Ending date: 06/10/2021 (Discontinued) Amphetamine-Dextroamphetamine (ADDERALL) 30 mg tablet Dose: 30 mg DAILY Starting date: 04/09/2021 Ending date: 07/15/2021 (Discontinued) Amphetamine-Dextroamphetamine (ADDERALL) 30 mg tablet Dose: 30 mg DAILY Starting date: 03/10/2021 Ending date: 07/15/2021 (Discontinued) Amphetamine-Dextroamphetamine (ADDERALL) 30 mg tablet Dose: 30 mg DAILY Starting date: 06/10/2021 Ending date: 07/15/2021 (Discontinued) Amphetamine-Dex (more content not included)... [facility] 08-15-2022 Instructions Toma Koch APRN.CNP - 08/15/2022 2:26 PM EST Following up for your Disorder: Symptoms of narcolepsy, idiopathic hypersomnia and other central nervous system (AUTOMATIC VULCANIZING LEAD OPERATOR) hypersomnia disorders can be effectively treated with several types of medications, many of which require frequent monitoring by a healthcare provider. At [facility], we want to ensure that your symptoms are well managed so that you can enjoy the best quality of life possible. Several medications are approved by the Food and Drug Administration (FDA) for the treatment of narcolepsy and one medication is approved for the treatment of idiopathic hypersomnia. Therefore, it is common practice to use some alerting medications off-label which means that insurance coverage is variable. Most are controlled substances, meaning that their use is monitored closely by pharmacies and governmental agencies. Some have interactions with other commonly used medications, including oral contraceptives and antidepressants. Regular follow-up with your sleep provider is required. If you are taking medications for hypersomnia, contact your sleep provider before starting other prescribed medications. Always keep your medication in a safe place, out of reach of children, teens and pets. A blood pressure measurement is required at every follow-up visit. You may set up a compatible blood pressure monitoring device that allows you to submit your readings from home to your healthcare provider through My Chart. Ask your provider for more information. Medications: There are three main classes of medication approved for the treatment of excessive sleepiness associated with narcolepsy: stimulant medications, non-stimulant wake-promoting medications and sodium/lower sodium oxybates. Sodium/lower sodium oxybates and pitolisant, a newer wake promoting agent, are also approved for cataplexy in people with narcolepsy. Stimulant Medications: Stimulants include methylphenidate (Ritalin, Concerta, Metadate, Daytrana, Quillivant, Quillichew), dexmethylphenidate (Focalin), and amphetamine derivatives (Adderall, Desoxyn, Methadine, Vyvanse, Zendeti). Due to side effects and the potential for dependence, follow-up with your sleep provider is required every 3 months including one in-person visit per year. This includes an annual visit with your sleep physician and quarterly visits with a sleep advanced practice provider as well as periodic urine and EKG monitoring. Non-stimulant Wake-promoting Medications: Non-stimulant wake-promoting medications include modafinil (Provigil) and armodafinil (Nuvigil) and two new agents FDA-approved in 2019, solriamfetol (Sunosi) and pitolisant (Wakix). Modafinil, armodafinil and solriamfetol are also approved for excessive sleepiness in people with obstructive sleep apnea on CPAP, and modafinil and armodafinil for excessive sleepiness in shift work sleep disorder. For more information about the newest treatments, see www.sunosi.com and www.wakix.com. Pitolisant requires a special prescription referral form sent by your sleep provider to a specialty pharmacy. While side effects may also occur with these agents, the risks are less than with stimulant medications. and follow-up with your sleep provider is required every 6 months including one in-person visit per year. This includes an annual visit with your sleep physician and a mid-year visit with a sleep advanced practice provider. Periodic urine and EKG monitoring may be recommended depended on the type of medication being prescribed. Oxybate Salts: Sodium oxybate (Xyrem) and lower-sodium oxybate (Xywav) are FDA-approved medications for excessive sleepiness and cataplexy in narcolepsy. Xywav was FDA-approved in 2019 and contains over 90% less sodium than Xyrem with the same degree of effectiveness. Both Xyrem and Xywav are liquids taken at bedtime and again during the night. Xyrem/Xywav are salts of gamma hydroxybutyrate (GHB), an illegal drug with serious side effects. While Xyrem/Xywav are not GHB, they should not be taken with other [employer]ING LEAD [employer]PERATOR depressants including opioid analgesics, benzodiazepines, sedating antidepressants, antipsychotics, sedating anti-seizure medicines, general anesthetics, muscle relaxants, alcohol or street drugs due to the risk of serious medical problems. When taken as prescribed, oxybate salts have lower potential for physical or psychological dependence than stimulant medications. Prescriptions are filed by a specialty pharmacy through the [employer] [facility] Program. For more information, see [email or web address] or [email or web address], respectively. Follow-up with your sleep provider is required every 6 months including one in-person visit per year. This includes an annual visit with your sleep physician and a mid-year visit with a sleep advanced practice provider. Periodic urine and EKG monitoring may be recommended. If you reside outside the state of [place], please discuss follow-up visit and prescription recommendations with your sleep physician as controlled substance regulations vary by state. If you miss your regularly scheduled appointments, you will need to make an appointment with a sleep advanced practice provider before refills will be approved. Non-medication Treatments: Non-pharmalogical treatments should be combined with medications to improve daytime sleepiness in narcolepsy, idiopathic hypersomnia, and other forms of hypersomnia. These including daytime naps, consistent sleep schedules, strategic caffeine, good sleep hygiene, avoidance of alcohol, sedating medications, recreational drugs and sleep deprivation and treatment of co-existing sleep disorders. Social support is important in managing the psychological difficulties associated with hypersomnia disorders and some people require educational and/or work accommodations. Cognitive behavioral therapy (CBT) with an experienced psychologist is helpful in managing psychosocial challenges and maintaining good sleep habits. Scheduling Information: - Any appointments can be scheduled through the central scheduling system for the [facility] [place] at [phone]. - [employer] offers direct scheduling for patients to schedule appointments. -Virtual visits are also available. If not covered by your insurance, there is a 35% discount. Please contact your insurance to determine coverage. For refills: - If you are receiving a controlled substance, you will need to see a sleep physician at least once per year. - In MyChart ( Medications then Request Renewals ) - Call the office at [phone], option #5 for provider questions. For any other questions: - Contact your visit provider via [employer] ( Inbox & Sent Messages then Send a message ) for the quickest response. - Call the office at [phone], option #5 for provider questions. [facility] website: [email or web address] documented in this encounter [facility] 08-15-2022 History of Present illness Narrative Images from the original note were not included. [facility] Follow up/ Established patient visit Date of last visit : 02/08/22 Per last visit: IMPRESSION: Narcolepsy with Cataplexy PLAN: - Continue taking Adderall, but increase to 20 mg twice per day as directed. - Avoid driving when drowsy. - machine overhauler for short naps (20-30 minutes) and use of caffeine if needed to help stay awake when driving. - Try to get at least 7-9 hours of sleep in a 24 hour period. Healthy diet and exercise can also promote better sleep. - Follow up in 3 months in the office. Recommend scheduling this appointment now to ensure the best time for you. - consider Xywav next visit. Cedric Alford MD Interval history : Here for follow up for NT1 (Adderall 20 mg two tabs daily). HYPERSOMNIA : Narcolepsy Naps: No Cataplexy: No Hypnagogic hallucinations: No Dream enactment behaviors: No Vivid dreams: Yes Sleep related injuries: No Drowsy driving: No, limits his driving to an hour tops. Current medications: OARRS checked: Yes Taking Adderall 20 mg two tablets daily. (0600, 0900). Medication effective. I don't fall asleep. Denies any tremor, insomnia, palpitations. Treatment history: No other medications. SLEEP HYGIENE Bedtime : 2130 Wake up Time : 0500 Time it takes to fall sleep : < 15 minutes Activities in bed before falling asleep : None Number of times patient wakes up per night : 1-2 Reason (s) why patient wakes up during the night : Drink Estimated total sleep time ( in a 24 hour period of time) : 5-6 Wakes up in the morning feeling alright. I try to keep that positive energy. Naps : Yes PATIENT-ENTERED QUESTIONNAIRE SLEEP SCORES Sleep Questions 05/09/2022 Reason for visit: Narcolepsy Average hours slept in 24 hours: 9 Accidents or near accidents due to drowsy drivin [place] Sleepiness Scale 11/07/2021 02/08/2022 05/09/2022 Score 18 (severe daytime sleepiness) 18 (severe daytime sleepiness) 18 (severe daytime sleepiness) PROMIS CAT Sleep Disturbance 11/07/2021 02/08/2022 05/09/2022 PROMIS Sleep Disturbance T-Score 58 (mild) 58 (mild) 63 (moderate) Insomnia Severity Index 11/07/2021 02/08/2022 05/09/2022 Score 15 15 17 Restless Leg Syndrome 05/09/2022 Score 14 PHQ-9 02/08/2022 05/09/2022 07/07/2022 Score 17 11 13 PROMIS Global Health - (T-Scores - the mean of general population = 50. Five points is a clinically meaningful difference.) 02/08/2022 05/09/2022 07/07/2022 Physical T-Score 44.9 47.7 42.3 Mental T-Score 36.3 43.5 43.5 PMH, PSH, SH: Reviewed SLEEP RELATED ROS Review of Systems Constitutional: Negative. Respiratory: Negative. Cardiovascular: Negative. Genitourinary: Negative. Neurological: Negative. ALLERGIES No Known Allergies CURRENT MEDICATIONS: [START ON 10/14/2022] dextroamphetamine-amphetamine (ADDERALL) 20 mg tablet Take one tablet by mouth twice per day. Do not exceed two tablets in a 24 hour period. Do not start before October 14, 2022. [START ON 09/14/2022] dextroamphetamine-amphetamine (ADDERALL) 20 mg tablet Take one tablet by mouth twice per day. Do not exceed two tablets in a 24 hour period. Do not start before September 14, 2022. dextroamphetamine-amphetamine (ADDERALL) 20 mg tablet Take one tablet by mouth twice per day. Do not exceed two tablets in a 24 hour period. Prior Hypersomnia/Narcolepsy Medications (20 years) Some values may be hidden. Unless noted otherwise, only the newest values recorded on each date are displayed. Hypersomnia/Narcolepsy Medications Amphetamine-Dextroamphetamine (ADDERALL) 30 mg tablet Dose: 30 mg DAILY Starting date: 10/11/2020 Ending date: 12/10/2020 (Discontinued) Amphetamine-Dextroamphetamine (ADDERALL) 30 mg tablet Dose: 30 mg DAILY Starting date: 11/11/2020 Ending date: 12/10/2020 (Discontinued) Amphetamine-Dextroamphetamine (ADDERALL) 30 mg tablet Dose: 30 mg DAILY Starting date: 02/08/2021 Ending date: 03/07/2021 (Discontinued) Amphetamine-Dextroamphetamine (ADDERALL) 30 mg tablet Dose: 30 mg DAILY Starting date: 01/09/2021 Ending date: 03/07/2021 (Discontinued) Amphetamine-Dextroamphetamine (ADDERALL) 30 mg tablet Dose: 30 mg DAILY Starting date: 12/10/2020 Ending date: 03/07/2021 (Discontinued) Amphetamine-Dextroamphetamine (ADDERALL) 30 mg tablet Dose: 30 mg DAILY Starting date: 05/09/2021 Ending date: 06/10/2021 (Discontinued) Amphetamine-Dextroamphetamine (ADDERALL) 30 mg tablet Dose: 30 mg DAILY Starting date: 04/09/2021 Ending date: 07/15/2021 (Discontinued) Amphetamine-Dextroamphetamine (ADDERALL) 30 mg tablet Dose: 30 mg DAILY Starting date: 03/10/2021 Ending date: 07/15/2021 (Discontinued) Amphetamine-Dextroamphetamine (ADDERALL) 30 mg tablet Dose: 30 mg DAILY Starting date: 06/10/2021 Ending date: 07/15/2021 (Discontinued) Amphetamine-Dextroamphetamine (ADDERALL) 30 mg tablet Dose: 30 mg DAILY Starting date: 09/13/2021 Ending date: 10/14/2021 (Discontinued) Amphetamine-Dextroamphetamine (ADDERALL) 30 mg tablet Dose: 30 mg DAILY Starting date: 08/14/2021 Ending date: 11/07/2021 (Discontinued) Amphetamine-Dextroamphetamine (ADDERALL) 30 mg tablet Dose: 30 mg DAILY Starting date: 07/15/2021 Ending date: 11/07/2021 (Discontinued) Amphetamine-Dextroamphetamine (ADDERALL) 30 mg tablet Dose: 30 mg DAILY Starting date: 10/16/2021 Ending date: 11/07/2021 (Discontinued) Amphetamine-Dextroamphetamine (ADDERALL) 30 mg tablet Dose: 30 mg DAILY Starting date: 01/14/2022 Ending date: 02/08/2022 (Discontinued) Amphetamine-Dextroamphetamine (ADDERALL) 30 mg tablet Dose: 30 mg DAILY Starting date: 12/15/2021 Ending date: 02/08/2022 (Discontinued) Amphetamine-Dextroamphetamine (ADDERALL) 30 mg tablet Dose: 30 mg DAILY Starting date: 11/15/2021 Ending date: 02/08/2022 (Discontinued) amphetamine-dextroamphetamine XR (ADDERALL XR) 20 mg 24 hr capsule Dose: 20 mg 3 TIMES DAILY Starting date: 06/17/2014 Ending date: 05/26/2015 (Discontinued) amphetamine-dextroamphetamine XR (ADDERALL XR) 20 mg 24 hr capsule Dose: 20 mg 3 TIMES DAILY Starting date: 05/26/2015 Ending date: 06/23/2015 (Discontinued) amphetamine-dextroamphetamine XR (ADDERALL XR) 20 mg 24 hr capsule Dose: Take 1 pill by mouth twice daily (take with adderall 20 mg) Starting date: 07/18/2016 Ending date: 12/05/2016 (Discontinued) amphetamine-dextroamphetamine XR (ADDERALL XR) 20 mg 24 hr capsule Dose: Take 1 pill by mouth twice daily (take with adderall 20 mg) Starting date: 08/18/2016 Ending date: 12/05/2016 (Discontinued) amphetamine-dextroamphetamine XR (ADDERALL XR) 20 mg 24 hr capsule Dose: Take 1 pill by mouth twice daily (take with adderall 20 mg) Starting date: 09/17/2016 Ending date: 12/05/2016 (Discontinued) dextroamphetamine-amphetamine (ADDERALL) 20 mg tablet Dose: 20 mg 3 TIMES DAILY Starting date: 03/22/2016 Ending date: 04/19/2016 (Discontinued) dextroamphetamine-amphetamine (ADDERALL) 20 mg tablet Dose: 20 mg 3 TIMES DAILY Starting date: 04/19/2016 Ending date: 07/18/2016 (Discontinued) dextroamphetamine-amphetamine (ADDERALL) 20 mg tablet Dose: 20 mg 3 TIMES DAILY Starting date: 05/19/2016 Ending date: 07/18/2016 (Discontinued) dextroamphetamine-amphetamine (ADDERALL) 20 mg tablet Dose: 20 mg 3 TIMES DAILY Starting date: 06/18/2016 Ending date: 07/18/2016 (Discontinued) dextroamphetamine-amphetamine (ADDERALL) 20 mg tablet Dose: Take 1 pill by mouth twice daily (take with adderall xr 20 mg) Starting date: 07/18/2016 Ending date: 12/05/2016 (Discontinued) dextroamphetamine-amphetamine (ADDERALL) 20 mg tablet Dose: Take 1 pill by mouth twice daily (take with adderall xr 20 mg) Starting date: 08/18/2016 Ending date: 12/05/2016 (Discontinued) dextroamphetamine-amphetamine (ADDERALL) 20 mg tablet Dose: Take 1 pill by mouth twice daily (take with adderall xr 20 mg) Starting date: 09/17/2016 Ending date: 12/05/2016 (Discontinued) dextroamphetamine-amphetamine (ADDERALL) 20 mg tablet Dose: Take 2 pills by mouth twice daily Starting date: 12/05/2016 Ending date: 02/20/2017 (Discontinued) dextroamphetamine-amphetamine (ADDERALL) 20 mg tablet Dose: Take 2 pills by mouth twice daily Starting date: 01/05/2017 Ending date: 02/20/2017 (Discontinued) dextroamphetamine-amphetamine (ADDERALL) 20 mg tablet Dose: Take 2 pills by mouth twice daily Starting date: 02/04/2017 Ending date: 02/20/2017 (Discontinued) dextroamphetamine-amphetamine (ADDERALL) 20 mg tablet Dose: Take 2 pills by mouth twice daily Starting date: 02/20/2017 Ending date: 03/28/2018 (Discontinued) dextroamphetamine-amphetamine (ADDERALL) 20 mg tablet Dose: Take 2 pills by mouth twice daily Starting date: 03/23/2017 Ending date: 03/28/2018 (Discontinued) dextroamphetamine-amphetamine (ADDERALL) 20 mg tablet Dose: Take 2 pills by mouth twice daily Starting date: 04/22/2017 Ending date: 07/25/2017 (Discontinued) dextroamphetamine-amphetamine (ADDERALL) 20 mg tablet Dose: Take 2 pills by mouth twice daily Starting date: 07/25/2017 Ending date: 03/28/2018 (Discontinued) dextroamphetamine-amphetamine (ADDERALL) 20 mg tablet Dose: Take 2 pills by mouth twice daily Starting date: 08/25/2017 Ending date: 03/28/2018 (Discontinued) dextroamphetamine-amphetamine (ADDERALL) 20 mg tablet Dose: Take 2 pills by mouth twice daily Starting date: 09/24/2017 Ending date: 03/28/2018 (Discontinued) dextroamphetamine-amphetamine (ADDERALL) 20 mg tablet Dose: Take 2 pills by mouth twice daily Earliest Fill Date: 03/28/18 Starting date: 03/28/2018 Ending date: 06/19/2018 (Discontinued) dextroamphetamine-amphetamine (ADDERALL) 20 mg tablet Dose: Take 2 pills by mouth twice daily Earliest Fill Date: 04/27/18 Starting date: 04/27/2018 Ending date: 06/19/2018 (Discontinued) dextroamphetamine-amphetamine (ADDERALL) 20 mg tablet Dose: Take 2 pills by mouth twice daily Earliest Fill Date: 05/28/18 Starting date: 05/28/2018 Ending date: 06/19/2018 (Discontinued) dextroamphetamine-amphetamine (ADDERALL) 20 mg tablet Dose: Take 2 pills by mouth twice daily Earliest Fill Date: 06/28/18 Starting date: 06/28/2018 Ending date: 09/25/2018 (Discontinued) dextroamphetamine-amphetamine (ADDERALL) 20 mg tablet Dose: Take 1 pills by mouth daily Earliest Fill Date: 09/25/18 Starting date: 09/25/2018 Ending date: 11/27/2018 (Discontinued) dextroamphetamine-amphetamine (ADDERALL) 20 mg tablet Dose: Take 1 pills by mouth daily Starting date: 11/27/2018 Ending date: 12/25/2018 (Discontinued) dextroamphetamine-amphetamine (ADDERALL) 20 mg tablet Dose: Take 1 pills by mouth daily Earliest Fill Date: 12/25/18 Starting date: 12/25/2018 Ending date: 02/27/2019 (Discontinued) dextroamphetamine-amphetamine (ADDERALL) 20 mg tablet Dose: Take 1 pills by mouth daily Earliest Fill Date: 01/23/19 Starting date: 01/23/2019 Ending date: 02/27/2019 (Discontinued) dextroamphetamine-amphetamine (ADDERALL) 20 mg tablet Dose: Take 1 pill by mouth daily Earliest Fill Date: 02/27/19 Starting date: 02/27/2019 Ending date: 07/30/2019 (Discontinued) dextroamphetamine-amphetamine (ADDERALL) 20 mg tablet Dose: Take 1 pill by mouth daily Earliest Fill Date: 03/29/19 Starting date: 03/29/2019 Ending date: 07/30/2019 (Discontinued) dextroamphetamine-amphetamine (ADDERALL) 20 mg tablet Dose: Take 1 pill by mouth daily Earliest Fill Date: 04/28/19 Starting date: 04/28/2019 Ending date: 05/07/2019 (Discontinued) dextroamphetamine-amphetamine (ADDERALL) 20 mg tablet Dose: Take 1 pill by mouth daily Starting date: 05/07/2019 Ending date: 07/09/2019 (Discontinued) dextroamphetamine-amphetamine (ADDERALL) 20 mg tablet Dose: Take 1 pill by mouth daily Starting date: 07/09/2019 Ending date: 07/30/2019 (Discontinued) dextroamphetamine-amphetamine (ADDERALL) 20 mg tablet Dose: Take 1 pill by mouth daily Starting date: 09/28/2019 Ending date: 10/29/2019 (Discontinued) dextroamphetamine-amphetamine (ADDERALL) 20 mg tablet Dose: Take 1 pill by mouth daily Starting date: 08/29/2019 Ending date: 01/21/2020 (Discontinued) dextroamphetamine-amphetamine (ADDERALL) 20 mg tablet Dose: Take 1 pill by mouth daily Starting date: 07/30/2019 Ending date: 01/21/2020 (Discontinued) dextroamphetamine-amphetamine (ADDERALL) 20 mg tablet Dose: Take 1 pill by mouth at wakeup and 1 pill at 9 am. [address] Starting date: 10/29/2019 Ending date: 01/21/2020 (Discontinued) dextroamphetamine-amphetamine (ADDERALL) 20 mg tablet Dose: Take 1 pill by mouth at wakeup and 1 pill at 9 am. ly Do not start before November 30, 2019. Starting date: 11/30/2019 Ending date: 01/21/2020 (Discontinued) dextroamphetamine-amphetamine (ADDERALL) 20 mg tablet Dose: Take 1 pill by mouth at wakeup and 1 pill at 9 am. ly Do not start before December 31, 2019. Starting date: 12/31/2019 Ending date: 01/21/2020 (Discontinued) dextroamphetamine-amphetamine (ADDERALL) 20 mg tablet Dose: Take 1 pill by mouth at wakeup and 1 pill at 9 am. Do not start before January 30, 2020. Starting date: 01/30/2020 Ending date: 05/14/2020 (Discontinued) dextroamphetamine-amphetamine (ADDERALL) 20 mg tablet Dose: Take 1 pill by mouth at wakeup and 1 pill at 9 am. Do not start before February 29, 2020. Starting date: 02/29/2020 Ending date: 05/14/2020 (Discontinued) dextroamphetamine-amphetamine (ADDERALL) 20 mg tablet Dose: Take 1 pill by mouth at wakeup and 1 pill at 9 am. Do not start before March 30, 2020. Starting date: 03/30/2020 Ending date: 05/14/2020 (Discontinued) dextroamphetamine-amphetamine (ADDERALL) 20 mg tablet Dose: Take 1 pill by mouth at wakeup and 1 pill at 9 am. Do not start before July 13, 2020. Starting date: 07/13/2020 Ending date: 07/27/2020 (Discontinued) dextroamphetamine-amphetamine (ADDERALL) 20 mg tablet Dose: Take 1 pill by mouth at wakeup and 1 pill at 9 am. Do not start before June 13, 2020. Starting date: 06/13/2020 Ending date: 07/27/2020 (Discontinued) dextroamphetamine-amphetamine (ADDERALL) 20 mg tablet Dose: Take 1 pill by mouth at wakeup and 1 pill at 9 am. Starting date: 05/14/2020 Ending date: 07/27/2020 (Discontinued) dextroamphetamine-amphetamine (ADDERALL) 20 mg tablet Dose: Take 1 pill by mouth at wakeup and 1 pill at 9 am. Do not start before August 11, 2020. Starting date: 08/11/2020 Ending date: 10/11/2020 (Discontinued) dextroamphetamine-amphetamine (ADDERALL) 20 mg tablet Dose: Take 1 pill by mouth at wakeup and 1 pill at 9 am. Do not start before September 09, 2020. Starting date: 09/09/2020 Ending date: 10/11/2020 (Discontinued) dextroamphetamine-amphetamine (ADDERALL) 20 mg tablet Dose: Take 1 pill by mouth at wakeup and 1 pill at 9 am. Do not start before October 09, 2020. Starting date: 10/09/2020 Ending date: 10/11/2020 (Discontinued) dextroamphetamine-amphetamine (ADDERALL) 20 mg tablet Dose: Take one tablet by mouth twice per day. Do not exceed two tablets in a 24 hour period. Starting date: 02/08/2022 Ending date: 08/15/2022 (Discontinued) dextroamphetamine-amphetamine (ADDERALL) 20 mg tablet Dose: Take one tablet by mouth twice per day. Do not exceed two tablets in a 24 hour period. Do not start before March 11, 2022. Starting date: 03/11/2022 Ending date: 08/15/2022 (Discontinued) dextroamphetamine-amphetamine (ADDERALL) 20 mg tablet Dose: Take one tablet by mouth twice per day. Do not exceed two tablets in a 24 hour period. Do not start before April 10, 2022. Starting date: 04/10/2022 Ending date: 08/15/2022 (Discontinued) dextroamphetamine-amphetamine (ADDERALL) 20 mg tablet Dose: Take one tablet by mouth twice per day. Do not exceed two tablets in a 24 hour period. Do not start before October 14, 2022. Starting date: 10/14/2022 Ending date: 11/13/2022 dextroamphetamine-amphetamine (ADDERALL) 20 mg tablet Dose: Take one tablet by mouth twice per day. Do not exceed two tablets in a 24 hour period. Do not start before September 14, 2022. Starting date: 09/14/2022 Ending date: 10/14/2022 dextroamphetamine-amphetamine (ADDERALL) 20 mg tablet Dose: Take one tablet by mouth twice per day. Do not exceed two tablets in a 24 hour period. Starting date: 08/15/2022 Ending date: 09/15/2022 dextroamphetamine-amphetamine 10 mg tablet Dose: 10 mg 3 TIMES DAILY Starting date: 04/22/2014 Ending date: 05/06/2014 (Discontinued) dextroamphetamine-amphetamine 10 mg tablet Dose: 20 mg 2 TIMES DAILY Starting date: 05/06/2014 Ending date: 06/17/2014 (Discontinued) methylphenidate (RITALIN) 20 mg tablet Dose: 20 mg 3 TIMES DAILY Starting date: 06/23/2015 Ending date: 08/12/2015 (Discontinued) methylphenidate (RITALIN) 20 mg tablet Dose: 20 mg 3 TIMES DAILY Starting date: 08/13/2015 Ending date: 09/15/2015 (Discontinued) methylphenidate (RITALIN) 20 mg tablet Dose: 20 mg 3 TIMES DAILY Starting date: 09/21/2015 Ending date: 10/15/2015 (Discontinued) methylphenidate (RITALIN) 20 mg tablet Dose: 20 mg 3 TIMES DAILY Starting date: 10/20/2015 Ending date: 12/27/2015 (Discontinued) methylphenidate (RITALIN) 20 mg tablet Dose: 20 mg 3 TIMES DAILY Starting date: 12/29/2015 Ending date: 02/14/2016 (Discontinued) methylphenidate (RITALIN) 20 mg tablet Dose: 20 mg 3 TIMES DAILY Starting date: 02/16/2016 Ending date: 03/22/2016 (Discontinued) Medication marked as long-term Prior RLS Medications (last 20 years) Some values may be hidden. Unless noted otherwise, only the newest values recorded on each date are displayed. RLS Medications No data to display. Prior Insomnia Medications (last 20 years) Some values may be hidden. Unless noted otherwise, only the newest values recorded on each date are displayed. Insomnia Medications citalopram (CELEXA) 20 mg tablet Dose: 1/2 pill daily X 1 week; then increase to a whole pill daily. Starting date: 04/17/2019 Ending date: 05/21/2019 (Discontinued) citalopram (CELEXA) 20 mg tablet Dose: One pill by mouth daily. (Patient not taking as of 02/20/2020 3:38 PM) Starting date: 05/21/2019 Ending date: 02/24/2020 (Discontinued) doxepin capsule 10 mg Dose: 10 mg AT BEDTIME Starting date: 05/30/2018 Ending date: 09/25/2018 (Discontinued) FLUoxetine (PROZAC) 10 mg capsule Dose: 10 mg DAILY Starting date: 06/17/2014 Ending date: 05/26/2015 (Discontinued) FLUoxetine (PROZAC) 10 mg capsule Dose: 10 mg DAILY Starting date: 05/26/2015 Ending date: 03/22/2016 (Discontinued) PHYSICAL EXAMINATION: Vital Signs: BP 139/86 (BP Site: Right Arm, BP Position: Sitting, BP Cuff Size: Regular Adult) Pulse 98 Temp 36 C (96.8 F) Resp 20 Ht 170.2 cm (5' 7 ) Wt 74.4 kg (164 lb) SpO2 98% BMI 25.69 kg/m PHYSICAL EXAM: Constitutional: Appearance: Well groomed. Well nourished male. Very pleasant. Neurological: General: No focal deficit present. Mental Status: A&OX3 (person, place, and time). Speech: Clear, projects well. Memory: Intact, responses appropriate. Psychiatric: Mood and Affect: Mood normal. Behavior: Behavior normal IMPRESSION: Diagnosis Primary narcolepsy with cataplexy (primary encounter diagnosis) Circadian rhythm sleep disorder, irregular sleep wake type Long-term current use of stimulant Sleep Studies (Reviewed Prior and Current): Polysomnogram 08/11/2010 revealed no PRITI (AHI 1.0) that was associated with a minimum O2 saturation of 84%. MSLT 09/26/2010 showed severe hypersomnia with a sleep latency of 2 minutes, with 5/5 SOREMPs. Overview: Mr. 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 - Doing well with Adderall 20 mg two tablets daily. - Denies any side effects. - Compliant and benefiting from treatment. - Discussed controlled medications require one yearly in person visit with doctor (Dr. De La Garza) per new [place] law guidelines and then you can follow up with virtual visits the rest of the year. Plan: - Continue taking Adderall 20 mg two tablets daily. Last filled on 04/10/22. Dispense on or after 08/15/22, 09/14/22, 10/14/22. Follow up before 11/13/22. - Avoid driving when drowsy. - machine overhauler for short naps (20-30 minutes) and use of caffeine if needed to help stay awake when driving. - Try to get at least 7-9 hours of sleep in a 24 hour period. Healthy diet and exercise can also promote better sleep. - Complete ECG done. Reviewed with patient. NSR at 84 bpm. Normal ECG. - Urine tox screen done. Results pending. - Last seen in person by Dr. De La Garza on 10/11/2020. Must be seen soon by Dr. De La Garza in person to meet state regulations. Recommend scheduling this appointment now to ensure the best time for you. If you have questions, feel free to send me a No Paper Just Vapor message . I spent a total of 35 minutes as this was a new patient to me on the date of the service which included preparing to see the patient, [id number] patient care, completing clinical documentation, counseling and educating the patient/family/caregiver and ordering medications, tests, or procedures. Toma Koch APRN.TRAVEL ACCOMMODATION INSPECTOR The following approved medication requests have been transmitted electronically. Requested Prescriptions Signed Prescriptions Disp Refills dextroamphetamine-amphetamine (ADDERALL) 20 mg tablet 60 tablet 0 Sig: Take one tablet by mouth twice per day. Do not exceed two tablets in a 24 hour period. Do not start before October 14, 2022. dextroamphetamine-amphetamine (ADDERALL) 20 mg tablet 60 tablet 0 Sig: Take one tablet by mouth twice per day. Do not exceed two tablets in a 24 hour period. Do not start before September 14, 2022. dextroamphetamine-amphetamine (ADDERALL) 20 mg tablet 60 tablet 0 Sig: Take one tablet by mouth twice per day. Do not exceed two tablets in a 24 hour period. Toma Koch APRN.JEFFERY PDMP website checked and validated. All prescriptions have been APPROPRIATELY filled. No suspicious activity was identified. 08/15/2022 by Toma Koch APRN.JEFFERY ' documented in this encounter [facility] 07-05-2022 Hospital Discharge instructions Patient Education 07/05/2022 10:21:33 Drug Reaction, Dystonic Medicine Reaction: Dystonic You are having a muscular reaction to a medicine you have taken. This is not a very common reaction. It is most often caused by medicines given for nausea, seizures, or psychiatric issues. The reaction can happen fairly quickly after taking the medicine. But it may occur after hours or even days. If untreated, the reaction lasts until the medicine is eliminated naturally from your body. This can take up to 3 days. Rarely, it can take a lot longer. You have been given medicines to help treat the reaction. Symptoms may include: Stiffening, tightness, spasm, or twisting of the muscles in the eyes, tongue, jaw, back, legs, or arms Trouble speaking and swallowing Trouble opening your mouth Trouble moving your neck and head Restless, jittery feeling throughout your whole body Home care You may eat and drink normally. Take your other prescribed medicines as directed. Avoid alcohol for the next 3 days. Take diphenhydramine or the medicines you were given for at least 2 days (48 hours). After 2 days, most of the medicine that caused the reaction should be eliminated from your body. If symptoms return, take the medicines for the reaction for another 48 hours. If this does not help, or if you run out of medicine, contact your healthcare provider. Unless specifically advised by your doctor, do not take the medicine that caused the reaction ever again. It may cause the same reaction in the future. If this medicine is needed to treat your condition and no substitutes exist, each dose can be taken along with the medicine to treat the reaction. Every time you visit a healthcare provider or a hospital, tell him or her about your reaction to this medicine. Prevention Most dystonic reactions are caused by a class of medicines called phenothiazines. Some antinausea medicines and some tranquilizers are in this class. If you have reacted to one medicine in this class, any medicine in this class will probably cause the same reaction. Other medicines that may cause this reaction include metoclopramide, some anesthetics, and some street drugs. Unless specifically advised by your doctor, don't take the medicine that caused the reaction ever again. It may cause the same reaction in the future. If this medicine is needed to treat your condition and no substitutes exist, each dose can be taken along with the medicine to treat the reaction. Every time you visit a healthcare provider or a hospital, tell him or her about your reaction to this medicine. Follow-up care Follow up with your healthcare provider or as advised. When to seek medical advice Call your healthcare provider right away if any of these occur: Symptoms return and are not controlled by restarting the medicine you were given to treat the reaction. Symptoms continue or you need to take the medicine for more than 3 days. Call 911 Call 911 if any of these occur. Trouble breathing or swallowing Trouble speaking Confusion Extreme drowsiness or trouble awakening Fainting or loss of consciousness Rapid heart rate Seizure [id number] [employer]. [address] [place] [address]. All rights reserved. This information is not intended as a substitute for professional medical care. Always follow your healthcare professional's instructions. Follow Up Care 07/05/2022 07:52:26 With:ZIA WEEKS DO Address: [address] [place] [id number]- When:2-4 days [facility] 07-05-2022 Note Discharge Instructions Thank you for allowing [facility] to assist you with your healthcare needs. The following is important discharge information regarding your hospital visit. Diagnosis from Today's Visit Medical screening exam What to Do Next Instructions from Your Care Team No qualifying data available. Post Acute Orders No qualifying data available. You Need to Schedule the Following Appointments Follow Up with ZIA WEEKS DO When Within 2-4 days Where: [address] [place] [address]- Allergies NKA Medications Please ask your primary doctor or pharmacist before taking any other medication not listed, including over the counter drugs, herbal medications, vitamins and or supplements as they may interact with your home medications. What How Much When Instructions Last Dose Unchanged amphetamine-dextroamphetamine (Adderall) Two (2) times a day Please take this list to your next doctor s visit. Bring all medications you take, including over the counter medications, herbals and other supplements with you to your doctor s visit. Patients and families are reminded to discard old lists and to update any records with all medication providers or retail pharmacies. Education Materials Medicine Reaction: Dystonic You are having a muscular reaction to a medicine you have taken. This is not a very common reaction. It is most often caused by medicines given for nausea, seizures, or psychiatric issues. The reaction can happen fairly quickly after taking the medicine. But it may occur after hours or even days. If untreated, the reaction lasts until the medicine is eliminated naturally from your body. This can take up to 3 days. Rarely, it can take a lot longer. You have been given medicines to help treat the reaction. Symptoms may include: Stiffening, tightness, spasm, or twisting of the muscles in the eyes, tongue, jaw, back, legs, or arms Trouble speaking and swallowing Trouble opening your mouth Trouble moving your neck and head Restless, jittery feeling throughout your whole body Home care You may eat and drink normally. Take your other prescribed medicines as directed. Avoid alcohol for the next 3 days. Take diphenhydramine or the medicines you were given for at least 2 days (48 hours). After 2 days, most of the medicine that caused the reaction should be eliminated from your body. If symptoms return, take the medicines for the reaction for another 48 hours. If this does not help, or if you run out of medicine, contact your healthcare provider. Unless specifically advised by your doctor, do not take the medicine that caused the reaction ever again. It may cause the same reaction in the future. If this medicine is needed to treat your condition and no substitutes exist, each dose can be taken along with the medicine to treat the reaction. Every time you visit a healthcare provider or a hospital, tell him or her about your reaction to this medicine. Prevention Most dystonic reactions are caused by a class of medicines called phenothiazines. Some antinausea medicines and some tranquilizers are in this class. If you have reacted to one medicine in this class, any medicine in this class will probably cause the same reaction. Other medicines that may cause this reaction include metoclopramide, some anesthetics, and some street drugs. Unless specifically advised by your doctor, don't take the medicine that caused the reaction ever again. It may cause the same reaction in the future. If this medicine is needed to treat your condition and no substitutes exist, each dose can be taken along with the medicine to treat the reaction. Every time you visit a healthcare provider or a hospital, tell him or her about your reaction to this medicine. Follow-up care Follow up with your healthcare provider or as advised. When to seek medical advice Call your healthcare provider right away if any of these occur: Symptoms return and are not controlled by restarting the medicine you were given to treat the reaction. Symptoms continue or you need to take the medicine for more than 3 days. Call 911 Call 911 if any of these occur. Trouble breathing or swallowing Trouble speaking Confusion Extreme drowsiness or trouble awakening Fainting or loss of consciousness Rapid heart rate Seizure [id number] [employer]. [address] [place], [place] [id number]. All rights reserved. This information is not intended as a substitute for professional medical care. Always follow your healthcare professional's instructions. Additional Information VACCINATE! IT SAVES LIVES! Members of the community who have not yet received the COVID-19 vaccine and would like to receive it can visit one of [facility] vaccine clinics. There are many vaccine clinic locations within the [facility]. For locations and available times, please visit [email or web address]. It is important to note that some COVID mobile vaccine clinics are held outdoors and may be canceled in rainy or stormy conditions. To learn more about pediatric vaccinations (ages 5-11), we invite you to visit the [facility] webpage. [email or web address] To learn more about the COVID-19 vaccine, we invite you to visit the [facility] website for a list of frequently asked questions. [email or web address] [facility] Patient Portal Access Instructions: Stay connected with your healthcare team and access your personal medical information anytime with the [facility] Patient Portal. If you would like a full copy of your medical records please contact the [facility] Medical Records Department Sunday through Sunday between 8a.m. and 4:30p.m. Please follow the directions below to access the portal: 1.Access the email account you provided upon registration to the [facility].2.Look for an invitation email from [facility].3.Open the email and access the invitation link: Accept Invitation to [facility]4.Fill in the required kelly to create your account. Sign into www.[email or web address] with your username and password that you created in the above steps to stay up to date. You can then view a summary of results, a summary of your visits, and the ability to download your summaries to your computer or send the information securely to a physician. Remember that your healthcare information is confidential, so carefully consider who you will allow to register on the [facility] Patient Portal for access to your information. You can also access the [facility] Patient Portal on the [employer] hakeem. Simply click on Health Records under Health Data and then click on the [employer] logo. HOW TO SAFELY DISPOSE OF PRESCRIPTION MEDICATIONS Please use one of the following methods to safely dispose of your unused medications. 1.Use a drug disposal kit: the drug disposal pouch allows you to safely discard your old and unused drugs. Ask your nurse to give you one when you are discharged.2.Visit a local take-back location: Many local pharmacies and police departments have programs that collect old and unwanted prescription drugs. Call your local pharmacy or go to http://bit.benchee/4T0Kh1k to find one close to you.3.Make use of household items: Use cat litter or old coffee grounds to dispose medications if other options are not available. Mix your drugs with these household products, seal them in an airtight container and throw it into the garbage. Call [facility]: [phone] to be sure your drugs can be disposed of in this way. Some medicines may require a different approach.4.Never flush your medications down the toilet. IF YOU HAVE BEEN PRESCRIBED AN OPIOIDS FOR PAIN If you have been prescribed an opioid (such as hydrocodone, oxycodone or morphine), it is critical to understand the possible side effects and risks of opioid pain medications. Even when taken as directed, opioids can have several side effects including: Tolerance, meaning you might need to take more of a medication for the same pain relief. Nausea, vomiting and/or constipation. Sleepiness, dizziness, dry mouth, confusion, depression or itching. Physical dependence, meaning you have withdrawal symptoms when a medication is stopped ? this can develop within a few days. KNOW YOUR RESPONSIBILITIES It is important to know exactly how much and how often to take the opioid pain medications you are prescribed. Never take opioids in higher amounts or more often than prescribed. Do not combine opioids with alcohol or other drugs that cause drowsiness, such as benzodiazepines, also known as benzos, including diazepam and alprazolam, muscle relaxants or sleep aids. Never sell or share prescription opioids. This is illegal. Store opioids in a secure place and out of reach of others (including children, family, friends and visitors). The last page(s) of this document has been signed and retained as a CHART COPY Signatures Patient Education Materials Drug Reaction, Dystonic Medication Leaflets My discharge plan and instructions have been reviewed and explained to me and I,[place] understand my current condition and have read and understand these discharge instructions. I have received a written copy of the plan/instructions. If I have questions, I am aware that I should contact my doctor. Patient/Risk Compliance Manager Signature: Date/Time: Relationship to Patient: ____ Witness Name/Signature: Date/Time: [facility] Keeganole King 07-04-2022 Hospital Discharge instructions Patient Education 07/04/2022 13:03:59 Gastroenteritis, Viral (Adult) Viral Gastroenteritis (Adult) Gastroenteritis is commonly called the stomach flu, although it has nothing to do with influenza. It is most often caused by a virus that affects the stomach and intestinal tract and usually lasts from 2 to 7 days. Common viruses causing gastroenteritis include norovirus, rotavirus, and hepatitis A. Non-viral causes of gastroenteritis include bacteria, parasites, and toxins. The danger from repeated vomiting or diarrhea is dehydration. This is the loss of too much fluid from the body. When this occurs, body fluids must be replaced. Antibiotics don't help with this illness because it is usually viral. Simple home treatment will be helpful. Symptoms of viral gastroenteritis may include: Watery, loose stools Stomach pain or abdominal cramps Fever and chills Nausea and vomiting Loss of bowel control Headache Home care Gastroenteritis is transmitted by contact with the stool or vomit of an infected person. This can occur from person to person or from contact with a contaminated surface. Follow these guidelines when caring for yourself at home: If symptoms are severe, rest at home for the next 24 hours or until you are feeling better. Wash your hands with soap and water or use alcohol-based senior linux engineer to prevent the spread of infection. Wash your hands after touching anyone who is sick. Wash your hands or use alcohol-based senior linux engineer after using the toilet and before meals. Clean the toilet after each use. Remember these tips when preparing food: People with diarrhea should not prepare or serve food to others. When preparing foods, wash your hands before and after. Wash your hands after using cutting boards, countertops, knives, or utensils that have been in contact with raw food. Dry your hands with a single use towel. Keep uncooked meats away from cooked and jfxhm-rc-djj foods. Medicine You may use acetaminophen or NSAID medicines like ibuprofen or naproxen to control fever unless another medicine was given. If you have chronic liver or kidney disease, talk with your healthcare provider before using these medicines. Also talk with your provider if you've had a stomach ulcer or gastrointestinal bleeding. Don't give aspirin to anyone under 18 years of age who is ill with a fever. It may cause severe liver damage. Don't use NSAIDS is you are already taking one for another condition (like arthritis) or are on aspirin (such as for heart disease or after a stroke). If medicine for vomiting or diarrhea are prescribed, take these only as directed. Nausea and diarrhea medicines are generally OK unless you have bleeding, fever, or severe abdominal pain. Diet Follow these guidelines for food: Water and liquids are important so you don't get dehydrated. Drink a small amount at a time or suck on ice chips if you are vomiting. If you eat, avoid fatty, greasy, spicy, or fried foods. Don't eat dairy if you have diarrhea. This can make diarrhea worse. Avoid tobacco, alcohol, and caffeine which may worsen symptoms. During the first 24 hours (the first full day), follow the diet below: Beverages. Sports drinks, soft drinks without caffeine, diamond blanka, mineral water (plain or flavored), decaffeinated tea and coffee. If you are very dehydrated, sports drinks aren't a good choice. They have too much sugar and not enough electrolytes. In this case, commercially available products called oral rehydration solutions, are best. Soups. Eat clear broth, consomm , and bouillon. Desserts. Eat gelatin, ice pops, and fruit juice bars. During the next 24 hours (the second day), you may add the following to the above: Hot cereal, plain toast, bread, rolls, and crackers Plain noodles, rice, mashed potatoes, chicken noodle or rice soup Unsweetened canned fruit (avoid pineapple), bananas Limit fat intake to less than 15 grams per day. Do this by avoiding margarine, butter, oils, mayonnaise, sauces, gravies, fried foods, peanut butter, meat, poultry, and fish. Limit fiber and avoid raw or cooked vegetables, fresh fruits (except bananas), and bran cereals. Limit caffeine and chocolate. Don't use spices or seasonings other than salt. Limit dairy products. Avoid alcohol. During the next 24 hours: Gradually resume a normal diet as you feel better and your symptoms improve. If at any time it starts getting worse again, go back to clear liquids until you feel better. Follow-up care Follow up with your healthcare provider, or as advised. Call your provider if you don't get better within 24 hours or if diarrhea lasts more than a week. Also follow up if you are unable to keep down liquids and get dehydrated. If a stool (diarrhea) sample was taken, call as directed for the results. Call 911 Call 911 if any of these occur: Trouble breathing Chest pain Confused Severe drowsiness or trouble awakening Fainting or loss of consciousness Rapid heart rate Seizure Stiff neck When to seek medical advice Call your healthcare provider right away if any of these occur: Abdominal pain that gets worse Continued vomiting (unable to keep liquids down) Frequent diarrhea (more than 5 times a day) Blood in vomit or stool (black or red color) Dark urine, reduced urine output, or extreme thirst Weakness or dizziness Drowsiness Fever of 100.4 F (38 C) or higher, or as directed by your healthcare provider Shimon silvestre [phone] [employer] [place] [address]. All rights reserved. This information is not intended as a substitute for professional medical care. Always follow your healthcare professional's instructions. Follow Up Care 07/04/2022 11:26:44 With:ZIA WEEKS DO Address: [address] [place], [place] [id number]- When:2-4 days [facility] 07-04-2022 Emergency department Discharge summary Discharge Instructions Thank you for allowing [facility] to assist you with your healthcare needs. The following is important discharge information regarding your hospital visit. Diagnosis from Today's Visit Diarrhea Dizziness Nausea What to Do Next Instructions from Your Care Team Discharge Return to Work, School, or Sports (Return to Work, School, or Sports) - Ordered -- within 1-3 days, May return to: work, 07/04/22 13:04:00 EDT Post Acute Orders No qualifying data available. You Need to Schedule the Following Appointments Follow Up with ZIA WEEKS DO When Within 2-4 days Where: [address] [place], [place] [id number]- Allergies NKA Medications Please ask your primary doctor or pharmacist before taking any other medication not listed, including over the counter drugs, herbal medications, vitamins and or supplements as they may interact with your home medications. What How Much When Instructions Last Dose Unchanged amphetamine-dextroamphetamine (Adderall) Two (2) times a day Please take this list to your next doctor s visit. Bring all medications you take, including over the counter medications, herbals and other supplements with you to your doctor s visit. Patients and families are reminded to discard old lists and to update any records with all medication providers or retail pharmacies. Education Materials Viral Gastroenteritis (Adult) Gastroenteritis is commonly called the stomach flu, although it has nothing to do with influenza. It is most often caused by a virus that affects the stomach and intestinal tract and usually lasts from 2 to 7 days. Common viruses causing gastroenteritis include norovirus, rotavirus, and hepatitis A. Non-viral causes of gastroenteritis include bacteria, parasites, and toxins. The danger from repeated vomiting or diarrhea is dehydration. This is the loss of too much fluid from the body. When this occurs, body fluids must be replaced. Antibiotics don't help with this illness because it is usually viral. Simple home treatment will be helpful. Symptoms of viral gastroenteritis may include: Watery, loose stools Stomach pain or abdominal cramps Fever and chills Nausea and vomiting Loss of bowel control Headache Home care Gastroenteritis is transmitted by contact with the stool or vomit of an infected person. This can occur from person to person or from contact with a contaminated surface. Follow these guidelines when caring for yourself at home: If symptoms are severe, rest at home for the next 24 hours or until you are feeling better. Wash your hands with soap and water or use alcohol-based senior linux engineer to prevent the spread of infection. Wash your hands after touching anyone who is sick. Wash your hands or use alcohol-based senior linux engineer after using the toilet and before meals. Clean the toilet after each use. Remember these tips when preparing food: People with diarrhea should not prepare or serve food to others. When preparing foods, wash your hands before and after. Wash your hands after using cutting boards, countertops, knives, or utensils that have been in contact with raw food. Dry your hands with a single use towel. Keep uncooked meats away from cooked and aodiv-ks-jrf foods. Medicine You may use acetaminophen or NSAID medicines like ibuprofen or naproxen to control fever unless another medicine was given. If you have chronic liver or kidney disease, talk with your healthcare provider before using these medicines. Also talk with your provider if you've had a stomach ulcer or gastrointestinal bleeding. Don't give aspirin to anyone under 18 years of age who is ill with a fever. It may cause severe liver damage. Don't use NSAIDS is you are already taking one for another condition (like arthritis) or are on aspirin (such as for heart disease or after a stroke). If medicine for vomiting or diarrhea are prescribed, take these only as directed. Nausea and diarrhea medicines are generally OK unless you have bleeding, fever, or severe abdominal pain. Diet Follow these guidelines for food: Water and liquids are important so you don't get dehydrated. Drink a small amount at a time or suck on ice chips if you are vomiting. If you eat, avoid fatty, greasy, spicy, or fried foods. Don't eat dairy if you have diarrhea. This can make diarrhea worse. Avoid tobacco, alcohol, and caffeine which may worsen symptoms. During the first 24 hours (the first full day), follow the diet below: Beverages. Sports drinks, soft drinks without caffeine, diamond blanka, mineral water (plain or flavored), decaffeinated tea and coffee. If you are very dehydrated, sports drinks aren't a good choice. They have too much sugar and not enough electrolytes. In this case, commercially available products called oral rehydration solutions, are best. Soups. Eat clear broth, consomm , and bouillon. Desserts. Eat gelatin, ice pops, and fruit juice bars. During the next 24 hours (the second day), you may add the following to the above: Hot cereal, plain toast, bread, rolls, and crackers Plain noodles, rice, mashed potatoes, chicken noodle or rice soup Unsweetened canned fruit (avoid pineapple), bananas Limit fat intake to less than 15 grams per day. Do this by avoiding margarine, butter, oils, mayonnaise, sauces, gravies, fried foods, peanut butter, meat, poultry, and fish. Limit fiber and avoid raw or cooked vegetables, fresh fruits (except bananas), and bran cereals. Limit caffeine and chocolate. Don't use spices or seasonings other than salt. Limit dairy products. Avoid alcohol. During the next 24 hours: Gradually resume a normal diet as you feel better and your symptoms improve. If at any time it starts getting worse again, go back to clear liquids until you feel better. Follow-up care Follow up with your healthcare provider, or as advised. Call your provider if you don't get better within 24 hours or if diarrhea lasts more than a week. Also follow up if you are unable to keep down liquids and get dehydrated. If a stool (diarrhea) sample was taken, call as directed for the results. Call 911 Call 911 if any of these occur: Trouble breathing Chest pain Confused Severe drowsiness or trouble awakening Fainting or loss of consciousness Rapid heart rate Seizure Stiff neck When to seek medical advice Call your healthcare provider right away if any of these occur: Abdominal pain that gets worse Continued vomiting (unable to keep liquids down) Frequent diarrhea (more than 5 times a day) Blood in vomit or stool (black or red color) Dark urine, reduced urine output, or extreme thirst Weakness or dizziness Drowsiness Fever of 100.4 F (38 C) or higher, or as directed by your healthcare provider Shimon silvestre [id number] [employer]. [address] [place] [address], [place] [address]. All rights reserved. This information is not intended as a substitute for professional medical care. Always follow your healthcare professional's instructions. Additional Information VACCINATE! IT SAVES LIVES! Members of the community who have not yet received the COVID-19 vaccine and would like to receive it can visit one of [facility] vaccine clinics. There are many vaccine clinic locations within the [facility]. For locations and available times, please visit [email or web address]. It is important to note that some COVID mobile vaccine clinics are held outdoors and may be canceled in rainy or stormy conditions. To learn more about pediatric vaccinations (ages 5-11), we invite you to visit the [facility] webpage. [email or web address] To learn more about the COVID-19 vaccine, we invite you to visit the [facility] website for a list of frequently asked questions. [email or web address] [facility] Access Instructions: Stay connected with your healthcare team and access your personal medical information anytime with the [facility] Patient Portal. If you would like a full copy of your medical records please contact the [facility] Medical Records Department Sunday through Sunday between 8a.m. and 4:30p.m. Please follow the directions below to access the portal: 1.Access the email account you provided upon registration to the [facility].2.Look for an invitation email from [facility].3.Open the email and access the invitation link: Accept Invitation to [facility]4.Fill in the required kelly to create your account. Sign into [email or web address] with your username and password that you created in the above steps to stay up to date. You can then view a summary of results, a summary of your visits, and the ability to download your summaries to your computer or send the information securely to a physician. Remember that your healthcare information is confidential, so carefully consider who you will allow to register on the [facility] Patient Portal for access to your information. You can also access the [facility] Patient Portal on the [employer] hakeem. Simply click on Health Records under Health Data and then click on the [employer] logo. HOW TO SAFELY DISPOSE OF PRESCRIPTION MEDICATIONS Please use one of the following methods to safely dispose of your unused medications. 1.Use a drug disposal kit: the drug disposal pouch allows you to safely discard your old and unused drugs. Ask your nurse to give you one when you are discharged.2.Visit a local take-back location: Many local pharmacies and police departments have programs that collect old and unwanted prescription drugs. Call your local pharmacy or go to http://bit.benchee/7N9Nj4z to find one close to you.3.Make use of household items: Use cat litter or old coffee grounds to dispose medications if other options are not available. Mix your drugs with these household products, seal them in an airtight container and throw it into the garbage. Call [facility]: [phone] to be sure your drugs can be disposed of in this way. Some medicines may require a different approach.4.Never flush your medications down the toilet. IF YOU HAVE BEEN PRESCRIBED AN OPIOIDS FOR PAIN If you have been prescribed an opioid (such as hydrocodone, oxycodone or morphine), it is critical to understand the possible side effects and risks of opioid pain medications. Even when taken as directed, opioids can have several side effects including: Tolerance, meaning you might need to take more of a medication for the same pain relief. Nausea, vomiting and/or constipation. Sleepiness, dizziness, dry mouth, confusion, depression or itching. Physical dependence, meaning you have withdrawal symptoms when a medication is stopped ? this can develop within a few days. KNOW YOUR RESPONSIBILITIES It is important to know exactly how much and how often to take the opioid pain medications you are prescribed. Never take opioids in higher amounts or more often than prescribed. Do not combine opioids with alcohol or other drugs that cause drowsiness, such as benzodiazepines, also known as benzos, including diazepam and alprazolam, muscle relaxants or sleep aids. Never sell or share prescription opioids. This is illegal. Store opioids in a secure place and out of reach of others (including children, family, friends and visitors). The last page(s) of this document has been signed and retained as a CHART COPY Signatures Patient Education Materials Gastroenteritis, Viral (Adult) Medication Leaflets My discharge plan and instructions have been reviewed and explained to me and IМАРИНА STEPHEN E understand my current condition and have read and understand these discharge instructions. I have received a written copy of the plan/instructions. If I have questions, I am aware that I should contact my doctor. Patient/Risk Compliance Manager Signature: Date/Time: Relationship to Patient: ____ Witness Name/Signature: Date/Time: [facility] 02-08-2022 Note HNO ID: [id number] Author: Cedric Alford MD Service: ? 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 Sleep Studies (Reviewed Prior and Current): Polysomnogram 08/11/2010 revealed no PRITI (AHI 1.0) that was associated with a minimum O2 saturation of 84%. MSLT 09/26/2010?showed severe hypersomnia with a sleep latency of 2 minutes, with 5/5 SOREMPs. ? Overview: Mr. 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 - Doing well with Adderall 30 mg daily. - Denies any side effects. - Compliant and benefiting from treatment. - Continues to work on bedtime schedule. - Discussed controlled medications require one yearly in person visit with doctor (Dr. De La Garza) per new [place] law guidelines and then you can follow up with virtual visits the rest of the year. ? Interval history : Here for follow up for Narcolepsy Very tired since changing to 30 mg from (2) 30 mg a year ago. He does take 1 15 minute nap per day, which is refreshing No problem driving. No accidents or near misses No problem with cataplexy. No chest pain, pressure, palpitations, NO GHOTRA, no change in blood pressure, no weight loss or insomnia. No snoring, no witnessed apnea SLEEP HYGIENE QUESTIONS: Bedtime : 930 Wake up Time : 530 Time it takes to fall sleep : < 20 minutes Activities in bed before falling asleep : none Number of times patient wakes up per night : 1-2 Reason (s) why patient wakes up during the night : Drink snack Estimated total sleep time ( in a 24 hour period of time) : 7-8 Naps : Yes PATIENT-ENTERED QUESTIONNAIRE SLEEP SCORES Sleep Questions 02/08/2022 Reason for visit: Narcolepsy Average hours slept in 24 hours: - Accidents or near accidents due to drowsy drivin [place] Sleepiness Scale 03/04/2021 11/07/2021 02/08/2022 Score 17 (severe daytime sleepiness) 18 (severe daytime sleepiness) 18 (severe daytime sleepiness) PROMIS CAT Sleep Disturbance 03/04/2021 11/07/2021 02/08/2022 PROMIS Sleep Disturbance T-Score 60 (mild) 58 (mild) 58 (mild) Insomnia Severity Index 03/04/2021 11/07/2021 02/08/2022 Score 15 15 15 PHQ-9 03/04/2021 11/07/2021 02/08/2022 Score 9 7 17 PROMIS Global Health - (T-Scores - the mean of general population = 50. Five points is a clinically meaningful difference.) 03/04/2021 11/07/2021 02/08/2022 Physical T-Score 47.7 - 44.9 Mental T-Score 38.8 43.5 36.3 PMH, PSH, SH: No change SLEEP RELATED ROS Review of Systems ALLERGIES No Known Allergies CURRENT MEDICATIONS: Amphetamine-Dextroamphetamine (ADDERALL) 30 mg tablet Take 1 tablet by mouth once daily for 30 days. Do not start before January 14, 2022. Amphetamine-Dextroamphetamine (ADDERALL) 30 mg tablet Take 1 tablet by mouth once daily for 30 days. Do not start before December 15, 2021. Amphetamine-Dextroamphetamine (ADDERALL) 30 mg tablet Take 1 tablet by mouth once daily for 30 days. Do not start before November 15, 2021. Prior Hypersomnia/Narcolepsy Medications (20 years) Some values may be hidden. Unless noted otherwise, only the newest values recorded on each date are displayed. Hypersomnia/Narcolepsy Medications Amphetamine-Dextroamphetamine (ADDERALL) 30 mg tablet Dose: 30 mg DAILY Starting date: 10/11/2020 Ending date: 12/10/2020 (Discontinued) Amphetamine-Dextroamphetamine (ADDERALL) 30 mg tablet Dose: 30 mg DAILY Starting date: 11/11/2020 Ending date: 12/10/2020 (Discontinued) Amphetamine-Dextroamphetamine (ADDERALL) 30 mg tablet Dose: 30 mg DAILY Starting date: 02/08/2021 Ending date: 03/07/2021 (Discontinued) Amphetamine-Dextroamphetamine (ADDERALL) 30 mg tablet Dose: 30 mg DAILY Starting date: 01/09/2021 Ending date: 03/07/2021 (Discontinued) Amphetamine-Dextroamphetamine (ADDERALL) 30 mg tablet Dose: 30 mg DAILY Starting date: 12/10/2020 Ending date: 03/07/2021 (Discontinued) Amphetamine-Dextroamphetamine (ADDERALL) 30 mg tablet Dose: 30 mg DAILY Starting date: 05/09/2021 Ending date: 06/10/2021 (Discontinued) Amphetamine-Dextroamphetamine (ADDERALL) 30 mg tablet Dose: 30 mg DAILY Starting date: 04/09/2021 Ending date: 07/15/2021 (Discontinued) Amphetamine-Dextroamphetamine (ADDERALL) 30 mg tablet Dose: 30 mg DAILY Starting date: 03/10/2021 Ending date: 07/15/2021 (Discontinued) Amphetamine-Dextroamphetamine (ADDERALL) 30 mg tablet Dose: 30 mg DAILY Starting date: 06/10/2021 Ending date: 07/15/2021 (Discontinued) Amphetamine-Dextroamphetamine (ADDERALL) 30 mg tablet Dose: 30 mg (more content not included)... [facility] 02-08-2022 History of Present illness Narrative Images from the original note were not included. 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 MSLT 09/26/2010 showed severe hypersomnia with a sleep latency of 2 minutes, with 5/5 SOREMPs. Overview: Mr. 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 - Doing well with Adderall 30 mg daily. - Denies any side effects. - Compliant and benefiting from treatment. - Continues to work on bedtime schedule. - Discussed controlled medications require one yearly in person visit with doctor (Dr. De La Garza) per [facility] law guidelines and then you can follow up with virtual visits the rest of the year. Interval history : Here for follow up for Narcolepsy Very tired since changing to 30 mg from (2) 30 mg a year ago. He does take 1 15 minute nap per day, which is refreshing No problem driving. No accidents or near misses No problem with cataplexy. No chest pain, pressure, palpitations, NO GHOTRA, no change in blood pressure, no weight loss or insomnia. No snoring, no witnessed apnea SLEEP HYGIENE QUESTIONS: Bedtime : 930 Wake up Time : 530 Time it takes to fall sleep : < 20 minutes Activities in bed before falling asleep : none Number of times patient wakes up per night : 1-2 Reason (s) why patient wakes up during the night : Drink snack Estimated total sleep time ( in a 24 hour period of time) : 7-8 Naps : Yes PATIENT-ENTERED QUESTIONNAIRE SLEEP SCORES Sleep Questions 02/08/2022 Reason for visit: Narcolepsy Average hours slept in 24 hours: - Accidents or near accidents due to drowsy drivin [place] Sleepiness Scale 03/04/2021 11/07/2021 02/08/2022 Score 17 (severe daytime sleepiness) 18 (severe daytime sleepiness) 18 (severe daytime sleepiness) PROMIS CAT Sleep Disturbance 03/04/2021 11/07/2021 02/08/2022 PROMIS Sleep Disturbance T-Score 60 (mild) 58 (mild) 58 (mild) Insomnia Severity Index 03/04/2021 11/07/2021 02/08/2022 Score 15 15 15 PHQ-9 03/04/2021 11/07/2021 02/08/2022 Score 9 7 17 PROMIS Global Health - (T-Scores - the mean of general population = 50. Five points is a clinically meaningful difference.) 03/04/2021 11/07/2021 02/08/2022 Physical T-Score 47.7 - 44.9 Mental T-Score 38.8 43.5 36.3 PMH, PSH, SH: No change SLEEP RELATED ROS Review of Systems ALLERGIES No Known Allergies CURRENT MEDICATIONS: Amphetamine-Dextroamphetamine (ADDERALL) 30 mg tablet Take 1 tablet by mouth once daily for 30 days. Do not start before January 14, 2022. Amphetamine-Dextroamphetamine (ADDERALL) 30 mg tablet Take 1 tablet by mouth once daily for 30 days. Do not start before December 15, 2021. Amphetamine-Dextroamphetamine (ADDERALL) 30 mg tablet Take 1 tablet by mouth once daily for 30 days. Do not start before November 15, 2021. Prior Hypersomnia/Narcolepsy Medications (20 years) Some values may be hidden. Unless noted otherwise, only the newest values recorded on each date are displayed. Hypersomnia/Narcolepsy Medications Amphetamine-Dextroamphetamine (ADDERALL) 30 mg tablet Dose: 30 mg DAILY Starting date: 10/11/2020 Ending date: 12/10/2020 (Discontinued) Amphetamine-Dextroamphetamine (ADDERALL) 30 mg tablet Dose: 30 mg DAILY Starting date: 11/11/2020 Ending date: 12/10/2020 (Discontinued) Amphetamine-Dextroamphetamine (ADDERALL) 30 mg tablet Dose: 30 mg DAILY Starting date: 02/08/2021 Ending date: 03/07/2021 (Discontinued) Amphetamine-Dextroamphetamine (ADDERALL) 30 mg tablet Dose: 30 mg DAILY Starting date: 01/09/2021 Ending date: 03/07/2021 (Discontinued) Amphetamine-Dextroamphetamine (ADDERALL) 30 mg tablet Dose: 30 mg DAILY Starting date: 12/10/2020 Ending date: 03/07/2021 (Discontinued) Amphetamine-Dextroamphetamine (ADDERALL) 30 mg tablet Dose: 30 mg DAILY Starting date: 05/09/2021 Ending date: 06/10/2021 (Discontinued) Amphetamine-Dextroamphetamine (ADDERALL) 30 mg tablet Dose: 30 mg DAILY Starting date: 04/09/2021 Ending date: 07/15/2021 (Discontinued) Amphetamine-Dextroamphetamine (ADDERALL) 30 mg tablet Dose: 30 mg DAILY Starting date: 03/10/2021 Ending date: 07/15/2021 (Discontinued) Amphetamine-Dextroamphetamine (ADDERALL) 30 mg tablet Dose: 30 mg DAILY Starting date: 06/10/2021 Ending date: 07/15/2021 (Discontinued) Amphetamine-Dextroamphetamine (ADDERALL) 30 mg tablet Dose: 30 mg DAILY Starting date: 09/13/2021 Ending date: 10/14/2021 (Discontinued) Amphetamine-Dextroamphetamine (ADDERALL) 30 mg tablet Dose: 30 mg DAILY Starting date: 08/14/2021 Ending date: 11/07/2021 (Discontinued) Amphetamine-Dextroamphetamine (ADDERALL) 30 mg tablet Dose: 30 mg DAILY Starting date: 07/15/2021 Ending date: 11/07/2021 (Discontinued) Amphetamine-Dextroamphetamine (ADDERALL) 30 mg tablet Dose: 30 mg DAILY Starting date: 10/16/2021 Ending date: 11/07/2021 (Discontinued) Amphetamine-Dextroamphetamine (ADDERALL) 30 mg tablet Dose: 30 mg DAILY Starting date: 01/14/2022 Ending date: 02/13/2022 Amphetamine-Dextroamphetamine (ADDERALL) 30 mg tablet Dose: 30 mg DAILY Starting date: 12/15/2021 Ending date: 01/14/2022 Amphetamine-Dextroamphetamine (ADDERALL) 30 mg tablet Dose: 30 mg DAILY Starting date: 11/15/2021 Ending date: 12/15/2021 amphetamine-dextroamphetamine XR (ADDERALL XR) 20 mg 24 hr capsule Dose: 20 mg TID Starting date: 06/17/2014 Ending date: 05/26/2015 (Discontinued) amphetamine-dextroamphetamine XR (ADDERALL XR) 20 mg 24 hr capsule Dose: 20 mg TID Starting date: 05/26/2015 Ending date: 06/23/2015 (Discontinued) amphetamine-dextroamphetamine XR (ADDERALL XR) 20 mg 24 hr capsule Dose: Take 1 pill by mouth twice daily (take with adderall 20 mg) Starting date: 07/18/2016 Ending date: 12/05/2016 (Discontinued) amphetamine-dextroamphetamine XR (ADDERALL XR) 20 mg 24 hr capsule Dose: Take 1 pill by mouth twice daily (take with adderall 20 mg) Starting date: 08/18/2016 Ending date: 12/05/2016 (Discontinued) amphetamine-dextroamphetamine XR (ADDERALL XR) 20 mg 24 hr capsule Dose: Take 1 pill by mouth twice daily (take with adderall 20 mg) Starting date: 09/17/2016 Ending date: 12/05/2016 (Discontinued) dextroamphetamine-amphetamine (ADDERALL) 20 mg tablet Dose: 20 mg TID Starting date: 03/22/2016 Ending date: 04/19/2016 (Discontinued) dextroamphetamine-amphetamine (ADDERALL) 20 mg tablet Dose: 20 mg TID Starting date: 04/19/2016 Ending date: 07/18/2016 (Discontinued) dextroamphetamine-amphetamine (ADDERALL) 20 mg tablet Dose: 20 mg TID Starting date: 05/19/2016 Ending date: 07/18/2016 (Discontinued) dextroamphetamine-amphetamine (ADDERALL) 20 mg tablet Dose: 20 mg TID Starting date: 06/18/2016 Ending date: 07/18/2016 (Discontinued) dextroamphetamine-amphetamine (ADDERALL) 20 mg tablet Dose: Take 1 pill by mouth twice daily (take with adderall xr 20 mg) Starting date: 07/18/2016 Ending date: 12/05/2016 (Discontinued) dextroamphetamine-amphetamine (ADDERALL) 20 mg tablet Dose: Take 1 pill by mouth twice daily (take with adderall xr 20 mg) Starting date: 08/18/2016 Ending date: 12/05/2016 (Discontinued) dextroamphetamine-amphetamine (ADDERALL) 20 mg tablet Dose: Take 1 pill by mouth twice daily (take with adderall xr 20 mg) Starting date: 09/17/2016 Ending date: 12/05/2016 (Discontinued) dextroamphetamine-amphetamine (ADDERALL) 20 mg tablet Dose: Take 2 pills by mouth twice daily Starting date: 12/05/2016 Ending date: 02/20/2017 (Discontinued) dextroamphetamine-amphetamine (ADDERALL) 20 mg tablet Dose: Take 2 pills by mouth twice daily Starting date: 01/05/2017 Ending date: 02/20/2017 (Discontinued) dextroamphetamine-amphetamine (ADDERALL) 20 mg tablet Dose: Take 2 pills by mouth twice daily Starting date: 02/04/2017 Ending date: 02/20/2017 (Discontinued) dextroamphetamine-amphetamine (ADDERALL) 20 mg tablet Dose: Take 2 pills by mouth twice daily Starting date: 02/20/2017 Ending date: 03/28/2018 (Discontinued) dextroamphetamine-amphetamine (ADDERALL) 20 mg tablet Dose: Take 2 pills by mouth twice daily Starting date: 03/23/2017 Ending date: 03/28/2018 (Discontinued) dextroamphetamine-amphetamine (ADDERALL) 20 mg tablet Dose: Take 2 pills by mouth twice daily Starting date: 04/22/2017 Ending date: 07/25/2017 (Discontinued) dextroamphetamine-amphetamine (ADDERALL) 20 mg tablet Dose: Take 2 pills by mouth twice daily Starting date: 07/25/2017 Ending date: 03/28/2018 (Discontinued) dextroamphetamine-amphetamine (ADDERALL) 20 mg tablet Dose: Take 2 pills by mouth twice daily Starting date: 08/25/2017 Ending date: 03/28/2018 (Discontinued) dextroamphetamine-amphetamine (ADDERALL) 20 mg tablet Dose: Take 2 pills by mouth twice daily Starting date: 09/24/2017 Ending date: 03/28/2018 (Discontinued) dextroamphetamine-amphetamine (ADDERALL) 20 mg tablet Dose: Take 2 pills by mouth twice daily Earliest Fill Date: 03/28/18 Starting date: 03/28/2018 Ending date: 06/19/2018 (Discontinued) dextroamphetamine-amphetamine (ADDERALL) 20 mg tablet Dose: Take 2 pills by mouth twice daily Earliest Fill Date: 04/27/18 Starting date: 04/27/2018 Ending date: 06/19/2018 (Discontinued) dextroamphetamine-amphetamine (ADDERALL) 20 mg tablet Dose: Take 2 pills by mouth twice daily Earliest Fill Date: 05/28/18 Starting date: 05/28/2018 Ending date: 06/19/2018 (Discontinued) dextroamphetamine-amphetamine (ADDERALL) 20 mg tablet Dose: Take 2 pills by mouth twice daily Earliest Fill Date: 06/28/18 Starting date: 06/28/2018 Ending date: 09/25/2018 (Discontinued) dextroamphetamine-amphetamine (ADDERALL) 20 mg tablet Dose: Take 1 pills by mouth daily Earliest Fill Date: 09/25/18 Starting date: 09/25/2018 Ending date: 11/27/2018 (Discontinued) dextroamphetamine-amphetamine (ADDERALL) 20 mg tablet Dose: Take 1 pills by mouth daily Starting date: 11/27/2018 Ending date: 12/25/2018 (Discontinued) dextroamphetamine-amphetamine (ADDERALL) 20 mg tablet Dose: Take 1 pills by mouth daily Earliest Fill Date: 12/25/18 Starting date: 12/25/2018 Ending date: 02/27/2019 (Discontinued) dextroamphetamine-amphetamine (ADDERALL) 20 mg tablet Dose: Take 1 pills by mouth daily Earliest Fill Date: 01/23/19 Starting date: 01/23/2019 Ending date: 02/27/2019 (Discontinued) dextroamphetamine-amphetamine (ADDERALL) 20 mg tablet Dose: Take 1 pill by mouth daily Earliest Fill Date: 02/27/19 Starting date: 02/27/2019 Ending date: 07/30/2019 (Discontinued) dextroamphetamine-amphetamine (ADDERALL) 20 mg tablet Dose: Take 1 pill by mouth daily Earliest Fill Date: 03/29/19 Starting date: 03/29/2019 Ending date: 07/30/2019 (Discontinued) dextroamphetamine-amphetamine (ADDERALL) 20 mg tablet Dose: Take 1 pill by mouth daily Earliest Fill Date: 04/28/19 Starting date: 04/28/2019 Ending date: 05/07/2019 (Discontinued) dextroamphetamine-amphetamine (ADDERALL) 20 mg tablet Dose: Take 1 pill by mouth daily Starting date: 05/07/2019 Ending date: 07/09/2019 (Discontinued) dextroamphetamine-amphetamine (ADDERALL) 20 mg tablet Dose: Take 1 pill by mouth daily Starting date: 07/09/2019 Ending date: 07/30/2019 (Discontinued) dextroamphetamine-amphetamine (ADDERALL) 20 mg tablet Dose: Take 1 pill by mouth daily Starting date: 09/28/2019 Ending date: 10/29/2019 (Discontinued) dextroamphetamine-amphetamine (ADDERALL) 20 mg tablet Dose: Take 1 pill by mouth daily Starting date: 08/29/2019 Ending date: 01/21/2020 (Discontinued) dextroamphetamine-amphetamine (ADDERALL) 20 mg tablet Dose: Take 1 pill by mouth daily Starting date: 07/30/2019 Ending date: 01/21/2020 (Discontinued) dextroamphetamine-amphetamine (ADDERALL) 20 mg tablet Dose: Take 1 pill by mouth at wakeup and 1 pill at 9 am. ly Starting date: 10/29/2019 Ending date: 01/21/2020 (Discontinued) dextroamphetamine-amphetamine (ADDERALL) 20 mg tablet Dose: Take 1 pill by mouth at wakeup and 1 pill at 9 am. ly Do not start before November 30, 2019. Starting date: 11/30/2019 Ending date: 01/21/2020 (Discontinued) dextroamphetamine-amphetamine (ADDERALL) 20 mg tablet Dose: Take 1 pill by mouth at wakeup and 1 pill at 9 am. ly Do not start before December 31, 2019. Starting date: 12/31/2019 Ending date: 01/21/2020 (Discontinued) dextroamphetamine-amphetamine (ADDERALL) 20 mg tablet Dose: Take 1 pill by mouth at wakeup and 1 pill at 9 am. Do not start before January 30, 2020. Starting date: 01/30/2020 Ending date: 05/14/2020 (Discontinued) dextroamphetamine-amphetamine (ADDERALL) 20 mg tablet Dose: Take 1 pill by mouth at wakeup and 1 pill at 9 am. Do not start before February 29, 2020. Starting date: 02/29/2020 Ending date: 05/14/2020 (Discontinued) dextroamphetamine-amphetamine (ADDERALL) 20 mg tablet Dose: Take 1 pill by mouth at wakeup and 1 pill at 9 am. Do not start before March 30, 2020. Starting date: 03/30/2020 Ending date: 05/14/2020 (Discontinued) dextroamphetamine-amphetamine (ADDERALL) 20 mg tablet Dose: Take 1 pill by mouth at wakeup and 1 pill at 9 am. Do not start before July 13, 2020. Starting date: 07/13/2020 Ending date: 07/27/2020 (Discontinued) dextroamphetamine-amphetamine (ADDERALL) 20 mg tablet Dose: Take 1 pill by mouth at wakeup and 1 pill at 9 am. Do not start before June 13, 2020. Starting date: 06/13/2020 Ending date: 07/27/2020 (Discontinued) dextroamphetamine-amphetamine (ADDERALL) 20 mg tablet Dose: Take 1 pill by mouth at wakeup and 1 pill at 9 am. Starting date: 05/14/2020 Ending date: 07/27/2020 (Discontinued) dextroamphetamine-amphetamine (ADDERALL) 20 mg tablet Dose: Take 1 pill by mouth at wakeup and 1 pill at 9 am. Do not start before August 11, 2020. Starting date: 08/11/2020 Ending date: 10/11/2020 (Discontinued) dextroamphetamine-amphetamine (ADDERALL) 20 mg tablet Dose: Take 1 pill by mouth at wakeup and 1 pill at 9 am. Do not start before September 09, 2020. Starting date: 09/09/2020 Ending date: 10/11/2020 (Discontinued) dextroamphetamine-amphetamine (ADDERALL) 20 mg tablet Dose: Take 1 pill by mouth at wakeup and 1 pill at 9 am. Do not start before October 09, 2020. Starting date: 10/09/2020 Ending date: 10/11/2020 (Discontinued) dextroamphetamine-amphetamine 10 mg tablet Dose: 10 mg TID Starting date: 04/22/2014 Ending date: 05/06/2014 (Discontinued) dextroamphetamine-amphetamine 10 mg tablet Dose: 20 mg BID Starting date: 05/06/2014 Ending date: 06/17/2014 (Discontinued) methylphenidate (RITALIN) 20 mg tablet Dose: 20 mg TID Starting date: 06/23/2015 Ending date: 08/12/2015 (Discontinued) methylphenidate (RITALIN) 20 mg tablet Dose: 20 mg TID Starting date: 08/13/2015 Ending date: 09/15/2015 (Discontinued) methylphenidate (RITALIN) 20 mg tablet Dose: 20 mg TID Starting date: 09/21/2015 Ending date: 10/15/2015 (Discontinued) methylphenidate (RITALIN) 20 mg tablet Dose: 20 mg TID Starting date: 10/20/2015 Ending date: 12/27/2015 (Discontinued) methylphenidate (RITALIN) 20 mg tablet Dose: 20 mg TID Starting date: 12/29/2015 Ending date: 02/14/2016 (Discontinued) methylphenidate (RITALIN) 20 mg tablet Dose: 20 mg TID Starting date: 02/16/2016 Ending date: 03/22/2016 (Discontinued) Medication marked as long-term PHYSICAL EXAMINATION: Virtual IMPRESSION: Narcolepsy with Cataplexy PLAN: - Continue taking Adderall, but increase to 20 mg twice per day as directed. - Avoid driving when drowsy. - machine overhauler for short naps (20-30 minutes) and use of caffeine if needed to help stay awake when driving. - Try to get at least 7-9 hours of sleep in a 24 hour period. Healthy diet and exercise can also promote better sleep. - Follow up in 3 months in the office. Recommend scheduling this appointment now to ensure the best time for you. - consider Xywav next visit. Cedric Alford MD documented in this encounter [facility] documented as of this encounter (statuses as of 02/08/2022) [facility]07-[facility]2016 History of Past illness Narrative* Problem Noted Date Resolved Date Sleep disorder, shift work 04/19/201606/19 Narcolepsy Type 1 04/22/2014 02/20/2017 Overview: MSLT done 09/26/[address] [facility] : The patient underwent 5 recording sessions. The patient fell asleep in all 5 recordings, where he had a total mean sleep latency of 2.0 minutes and was felt to have gone into REM sleep in all 5 recordings. PSG done 08/11/[address] [facility]. No PRITI noted. Full reports of both studies will be scanned into [employer]. 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, irregular sleep-wake type Long-term current use of stimulant [facility] this encounter [facility] Outpatient Procedure (Routine) - Pending Review Specialty Diagnoses / Procedures Referred By Lavelle singh [facility] Diagnoses Primary narcolepsy with cataplexy Long-term current use of stimulant Procedures ECG COMPLETE ECG ROUTINE ECG W/LEAST 12 LDS W/I&R Toma Koch APRN.CNP [address] [place] [address] [facility] [place] [id number] Referral ID Status Reason Start Date Expiration Date Visits Requested Visits Authorized [id number] Pending Review Auto-Generat ed Referral 2 08/15/2023 1 1 [facility] Summary Purpose Family History No Family History Records FoundNo Family History Records FoundNo Family History Records FoundNo Family History Records FoundNo Family History Records Found Advance Directives No Advanced Directives Records FoundNo Advanced Directives Records FoundNo Advanced Directives Records FoundNo Advanced Directives Records FoundNo Advanced Directives Records Found Additional Source Comments (unrecognized sect ion and content) No Status Records FoundNo Status Records FoundNo Status Records FoundNo Status Records FoundNo Status Records Found INFORMATION SOURCE (unrecogn ized section and content) DATE CREATED AUTHOR AUTHOR'S ORGANIZ ATION 07/18/2021 [facility] DATE CREATED AUTHOR AUTHOR'S ORGANIZ ATION 07/24/2022 [facility] ([place]) DATE CREATED AUTHOR AUTHOR'S ORGANIZ ATION 11/18/2022 [facility] DATE CREATED AUTHOR AUTHOR'S ORGANIZ ATION 02/14/2023 [facility] Source Comments (unrecognize d section and content) In the event this informatio n is protected by the Federal Confidentiality of Alcohol and Drug Abuse Patient Records regulations: The Federal rules restrict any use of the information to criminally investigate or prosecute any alcohol or drug abuse patient.[facility] the event this information is protected by the Federal Confidentiality of Alcohol and Drug Abuse Patient Records regulations: The Federal rules restrict any use of the information to criminally investigate or prosecute any alcohol or drug abuse patient.[facility] Reason for Visit (unrecogniz ed section and content) Reason Comments Follow Up Care Teams (unrecognized sec tion and content) [employer] Relationship Specialty Start Date End Date Zia Weeks DO [address] [phone] PCP - General Family Medicine 02/03/14 Care Team (unrecognized sect ion and content) Care Team Personnel Name: ZIA WEEKS DO Member Role: Primary Care Physician Address: Address: [address] [place] [address]- Care Team Related Persons Name: FABIAN HUNTER Care Team Personnel Name: ZIA WEEKS DO Member Role: Primary Care Physician Address: Address: [address] [place] [address] Care Team Related Persons Name: FABIAN HUNTER FOR RECORDS PERTAINING TO PATIENTS WHO ARE OR HAVE BEEN ENROLLED IN A CHEMICAL DEPENDENCY/SUBSTANCEABUSE PROGRAM, SOME INFORMATION MAY BE OMITTED. This clinical summary was aggregated from multiple sources. Caution should be exercised in using it in the provision of clinical care. This summary normalizes information from multiple sources, and as a consequence, information in this document may materially change the coding, format and clinical context of patient data. In addition, data may be omitted in some cases. CLINICAL DECISIONS SHOULD BE BASED ON THE PRIMARY CLINICAL RECORDS. [employer] [facility]. provides no warranty or guarantee of the accuracy or completeness of information in this document.
--- NOTE | 2023-10-19 12:20 | RAD_ITS ---
INDICATION: Injury/Pain EXAMINATION/TECHNIQUE: X-RAY - LEFT XR Wrist Min 3 Views 3 VIEWS COMPARISON: No relevant prior comparison study available FINDINGS: SOFT TISSUES: No soft tissue swelling or gas. No radiopaque foreign body. BONES/JOINTS: No acute fracture or subluxation.. Normal alignment. Preservation of the joint space.. No sclerotic or destructive changes observed. RAD/Wrist min 3 Views IMPRESSION: No evidence of acute fracture or dislocation. Electronically Signed: Karan Arriaga MD at 12:50 EST ,
--- NOTE | 2023-10-19 12:20 | RAD_ITS ---
INDICATION: Injury/Pain EXAMINATION/TECHNIQUE: X-RAY - LEFT XR Forearm 2 Views 2 VIEWS COMPARISON: Prior study dated: FINDINGS: SOFT TISSUES: No soft tissue swelling or gas. No radiopaque foreign body. BONES/JOINTS: No acute fracture or subluxation.. Normal alignment. Preservation of the joint space.. No sclerotic or destructive changes observed. RAD/Forearm 2 Views IMPRESSION: No evidence of acute fracture or dislocation. Electronically Signed: Karan Arriaga MD at 12:44 EST ,
[2023-10-19 12:25] LABS: Erythrocyte Sedimentation Rate 1 mm/hr (0-20)
[2023-10-19 12:28] LABS: Absolute Lymphocyte Count 1.55 X10^3/uL (0.83-4.51); Absolute Neutrophil Count 4.5 X10^3/uL (2.0-7.7); Basophil# 0.08 X10^3/uL; Basophil% 1.1 % (0-1); Eosinophil# 0.26 X10^3/uL; Eosinophils% 3.6 % (0-5); Hematocrit 42.8 % (40-54); Hemoglobin 13.5 g/dL (13.0-16.5); Lymphocyte # 1.55 X10^3/ul (0.83-4.51); Lymphocyte % 21.4 % (19-41); Mean Corp Hgb Conc 31.5 g/dL (32-36); Mean Corpuscular Hgb 26.5 pg (27.0-32.0); Mean Corpuscular Volume 84.1 fL (80-94); Mean Platelet Vol. 9.2 fl (6.2-12.0); Monocyte# 0.76 X10^3/uL; Monocyte% 10.5 % (0-10); NRBC Flagged by Analyzer 0 % (0-5); Neutrophil # 4.54 X10^3/uL (2.7-7.7); Neutrophil % 62.8 % (47-70); Platelet Count 328 K/mm3 (150-450); RBC Distribution Width CV 12.9 % (11.6-14.6); RBC Distribution Width SD 39.3 fl (35.1-43.9); Red Blood Count 5.09 M/mm3 (4.6-6.2); White Blood Count 7.2 K/mm3 (4.4-11.0)
[2023-10-19 12:46] LABS: Anion Gap 2 (5-15); BUN 11 mg/dL (7-18); BUN/Creat Ratio 16.6 RATIO (10-20); CRP 5.59 mg/L (0.0-3.0); Calcium,Total 9.8 mg/dL (8.5-10.1); Chloride 104 mmol/L (98-107); Creatinine, Serum 0.66 mg/dL (0.70-1.30); EST Glomerular Filtration Rate 147 mL/min (>60); Est Glom Filt Rate - Afr Amer 178 mL/min (>60); Estimated Creatinine Clearance 177.93 ml/min; Glucose 103 mg/dL (74-106); Potassium 4.4 mmol/L (3.5-5.1); Sodium Level 136 mmol/L (136-145)
[2023-10-19 13:04] VITALS: BP 132/64; PULSE 64; RESP 18; TEMP 36.4; O2SAT 99
== END 2023-10-19 13:11 | disposition home or self-care (01) ==
PROVIDERS: Emergency Provider Emergency Medicine; PCP Student in an Organized Health Care Education/Training Program; Visit Provider Emergency Medicine
DX: S63.92XA Sprain of unspecified part of left wrist and hand, initial encounter (principal); X58.XXXA Exposure to other specified factors, initial encounter
CPT/HCPCS: 73090; 73110; 80048; 85025; 85652; 86140; 99284; A4216